=== PATIENT | female | born 1980 | race Caucasian/White ===

== ENCOUNTER → 2020-05-05 16:18 | Outpatient (BNV) | payer MEDICAID, SELFPAY | PROVIDERS: PCP Family Medicine; Visit Provider Internal Medicine | DX: D50.9 Iron deficiency anemia, unspecified (principal) | CPT/HCPCS: 99213; 99214 ==

== ENCOUNTER 2020-07-17 21:46 | Emergency (ER) | payer MEDICAID, SELFPAY ==
[2020-07-17 21:49] VITALS: BP 180/116; PULSE 100; RESP 18; TEMP 36.9; O2SAT 97; BMI 36.4
--- NOTE | 2020-07-17 22:53 | ED_ITS ---
HPI - Wound/Laceration General Chief Complaint: Wound/Laceration Stated Complaint: Lip laceration Time Seen by Provider: 07/17/20 22:50 Source: patient Mode of arrival: ambulatory History of Present Illness HPI narrative: This is a 39-year-old female who states that she fell and hit her upper lip without loss of consciousness sustaining a laceration to the left upper lip. She otherwise denies any pain. Related Data Allergies Allergy/AdvReac Type Severity Reaction Status Date / Time No Known Allergies Allergy Unknown N/A Verified 07/17/20 21:49 [No Known Allergies*] Review of Systems Review of Systems: Pertinent positives and negatives as stated in HPI 10 point review of systems otherwise negative [facility] Past Medical History Source: nursing notes reviewed Medical History Hypertension Iron deficiency Personal history of renal cancer Surgical History H/O tubal ligation History of appendectomy History of nephrectomy, left Hx of tonsillectomy Social History Social History Alcohol intake: current Alcohol intake frequency: holidays/special occasions only Smoking Status: Current every day smoker Tobacco Type: Cigarette Use of substances other than those prescribed or required for medical reasons: No Any prior treatment program specific to substance use: No Advance Directives: No Advance Directives Information Provided: No Physical Exam Vital Signs: Vital Signs: Last Vital Signs Temp 98.4 F 07/17/20 21:49 Pulse 100 07/17/20 21:49 Resp 18 07/17/20 21:49 BP 180/116 H 07/17/20 21:49 Pulse Ox 97 07/17/20 21:49 Body Mass Index 36.4 VITAL SIGNS: Reviewed. GENERAL: Well developed, well nourished, in no acute distress. HEAD: Normocephalic/atraumati, EYES: PERRLA, EOMI NOSE: Nares patent bilateral OROPHARYNX: no oral lesions noted, posterior pharynx clear, no chipped teeth, and 0.5 cm laceration to the mucosal side of the left upper lip that is hemostatic and no other noted lesions within the mouth. NECK: Supple, no adenopathy LUNGS: Normal breath sounds. No adventitious sounds or accessory muscle use. SpO2<> CARDIOVASCULAR: Regular rate and rhythm without noted murmurs ABDOMEN: Soft, non-tender, non-distended with bowel sounds. NEUROLOGIC: Alert and oriented x 4. Strength and sensation to light touch were grossly intact x 4. Course Course Course Narrative: This is a 39-year-old female with history and clinical presentation consistent with minor laceration to the mucosal surface of the left upper lip that does not require sutures. Patient is unsure of tetanus vaccine and patient will receive Tdap here in the emergency department and be discharged in stable condition. Discharge Plan Discharge Clinical Impression: Laceration of lip Qualifiers: Encounter type: initial encounter Qualified Code(s): S01.511A - Laceration without foreign body of lip, initial encounter Patient Disposition: Home, Self-Care Instructions: Laceration Without Closure (ED) Additional Instructions: - May use huvq-bkw-dzjducv Tylenol/ibuprofen for pain control. - may use saline rinses - you have received your Tdap vaccine Do not hesitate to return to the emergency department should you develop any acute worsening. Referrals: Serena Levine MD [Primary Care Provider] - 2 days (Re-evaluation of left upper lip laceration not requiring suture)
== END 2020-07-17 23:58 | disposition home or self-care (01) ==
PROVIDERS: Emergency Provider Student in an Organized Health Care Education/Training Program; PCP Family Medicine
DX: S01.511A Laceration without foreign body of lip, initial encounter (principal); S00.511A Abrasion of lip, initial encounter; W01.198A Fall on same level from slipping, tripping and stumbling with subsequent striking against other object, initial encounter; I10 Essential (primary) hypertension; F17.210 Nicotine dependence, cigarettes, uncomplicated; Y93.89 Activity, other specified; Y92.039 Unspecified place in apartment as the place of occurrence of the external cause; Y99.9 Unspecified external cause status; Z85.53 Personal history of malignant neoplasm of renal pelvis
CPT/HCPCS: 90471; 90715; 99284

== ENCOUNTER 2020-08-12 08:46 | Outpatient (REF) | payer MEDICAID, SELFPAY ==
--- NOTE | 2020-08-12 08:51 | EMG_ITS ---
Right median and ulnar motor and sensory studies were performed. Right radial sensory study was performed and paraspinal muscles were tested. IMPRESSION: [id number]-ct-[id number] right median neuropathy across carpal tunnel. MD SUSI Uriostegui/TOMEKA / [id number]
== END 2020-08-12 08:47 | disposition home or self-care (01) ==
LOC: HO.NEURO 08:46
PROVIDERS: Visit Provider Family Medicine
DX: M25.531 Pain in right wrist (principal); R20.0 Anesthesia of skin
CPT/HCPCS: 95860; 95886; 95909

== ENCOUNTER 2020-10-01 14:46 | Emergency (ER) | payer MEDICAID, SELFPAY ==
[2020-10-01 14:49] VITALS: BP 185/115; PULSE 88; RESP 18; TEMP 36.6; O2SAT 100; BMI 29.0
--- NOTE | 2020-10-01 16:36 | ED.GENADULT ---
HPI - General Adult General Chief complaint: Allergic Reaction <Sarath Harris - Last Filed: 10/01/20 16:45> Stated complaint: allergic reaction <Sarath Harris - Last Filed: 10/01/20 16:45> Time Seen by Provider: 10/01/20 16:36 <Sarath Harris - Last Filed: 10/01/20 16:45> Source: patient <Sarath Harris - Last Filed: 10/01/20 16:45> Limitations: no limitations <Sarath Harris - Last Filed: 10/01/20 16:45> History of Present Illness HPI narrative: Patient presents complaining of intermittent hives that happened over the past 24 hours. Patient denies any new medications or ingestions. Patient states she feels like when she is outside makes worse. Patient has no history of seasonal allergies. Patient states positive relief with frvz-dbg-vstfaph Benadryl. Patient denies shortness of breath fever chills or chest pain. No other complaints at this time. <Sarath Harris - Last Filed: 10/01/20 16:45> Related Data Home medications: Home Medications Medication Instructions Recorded Confirmed gabapentin 100 mg capsule 100 mg PO DAILY 10/12/20 lisinopril 2.5 mg tablet 2.5 mg PO DAILY 10/12/20 <Sarath Harris - Last Filed: 10/01/20 16:45> Allergies/adverse reactions: Allergies Allergy/AdvReac Type Severity Reaction Status Date / Time No Known Allergies Allergy Unknown N/A Verified 10/12/20 11:19 [No Known Allergies*] <Sarath Harris - Last Filed: 10/01/20 16:45> Review of Systems Constitutional: Constitutional: Denies body ache(s), Denies chills, Denies fever(s) and Denies headache(s) <Sarath aHrris - Last Filed: 10/01/20 16:45> Eyes: Eyes: Denies blurry vision and Denies itchy eyes <Sarath Harris - Last Filed: 10/01/20 16:45> ENT: Denies headache(s), Denies lip swelling, Denies nasal discharge, Denies sore throat and Denies tongue swelling <Sarath Harris - Last Filed: 10/01/20 16:45> Cardiovascular: Cardiovascular: Denies chest pain, Denies dyspnea and Denies dyspnea on exertion <Sarath Harris - Last Filed: 10/01/20 16:45> Respiratory: Respiratory: Denies cough, Denies dyspnea and Denies dyspnea on exertion <Sarath Harris - Last Filed: 10/01/20 16:45> Gastrointestinal: Gastrointestinal: Denies diarrhea, Denies nausea and Denies vomiting <Sarath Harris - Last Filed: 10/01/20 16:45> Musculoskeletal: Musculoskeletal: Reports no additional musculoskeletal complaints <Sarath Harris - Last Filed: 10/01/20 16:45> Neurologic: Denies headache(s) <Sarath Harris - Last Filed: 10/01/20 16:45> Hematologic/Lymphatic: Hematologic/Lymphatic: Denies easy bruising <Sarath Harris - Last Filed: 10/01/20 16:45> Allergic/Immunologic: Allergic/Immunologic: Denies GI upset with certain foods, Reports urticaria, Denies itchy eyes, Denies lip swelling and Denies tongue swelling <Sarath Harris - Last Filed: 10/01/20 16:45> [facility] Past Medical History Attestation statement: The following information was validated with the patient. <Sarath Harris - Last Filed: 10/01/20 16:45> Medical History: Medical History Hypertension Iron deficiency Personal history of renal cancer <Sarath Harris - Last Filed: 10/01/20 16:45> Surgical History: Surgical History H/O tubal ligation History of appendectomy History of nephrectomy, left Hx of tonsillectomy <Sarath Harris - Last Filed: 10/01/20 16:45> Social History Social History: Social History (Updated 10/12/20 @ 11:21 by Shelbie Isidro) Alcohol intake: never Current occupational status: employed Current occupation: rt handed . secrectary <Sarath Harris - Last Filed: 10/01/20 16:45> Physical Exam Vital Signs: Vital Signs: Last Vital Signs Temp 97.9 F 10/01/20 14:49 Pulse 88 10/01/20 14:49 Resp 18 10/01/20 14:49 BP 185/115 H 10/01/20 14:49 Pulse Ox 100 10/01/20 14:49 Body Mass Index 29.0 vital signs have been reviewed as normal and appeared to be correct. Blood pressure normal. Heart rate normal. Respiration rate normal. Temperature normal. Oxygen saturation normal. <Sarath Harris - Last Filed: 10/01/20 16:45> Vital Signs: Last Vital Signs Temp 97.9 F 10/01/20 14:49 Pulse 88 10/01/20 14:49 Resp 18 10/01/20 14:49 BP 185/115 H 10/01/20 14:49 Pulse Ox 100 10/01/20 14:49 Body Mass Index 29.0 <Efren Colon MD - Last Filed: 10/25/20 07:00> Appearance: Alert. Oriented X3. No acute distress. Head: Normal external exam. Normocephalic. Atraumatic. Eyes: PERRLA. EOMI. Conjunctiva and sclera normal. Eyelids normal. ENT: Pharynx normal. Uvula midline. Moist mucous membranes. Oral airway is pain no stridor Neck: Soft full range of motion CVS: Heart regular rate and rhythm no murmurs and rubs Respiratory: Breath sounds are clear to auscultation bilaterally. No accessory muscle use noted. Back: No CVA tenderness. Full range of motion noted. Skin: Skin warm and dry. Normal skin color. Normal skin turgor. Urticarial rash resolved since taking the Benadryl. Extremities: No lower extremity edema. Extremities exhibit normal range of motion. Extremities nontender. Neuro: Oriented X 3. No motor deficit. No sensory deficit. <Sarath Harris - Last Filed: 10/01/20 16:45> Course Course Course Narrative: Differential diagnosis: Idiopathic urticaria Seasonal allergies Contact dermatitis 4:40 p.m. symptoms have improved since patient taken [id number]-rgrjddk Benadryl will discharge patient home on Pred Juan A and continue to take Benadryl every 6-8 hours return if symptoms worsen <Sarath Harris - Last Filed: 10/01/20 16:45> I have reviewed the chart <Efren Colon MD - Last Filed: 10/25/20 07:00> Discharge Plan Discharge Clinical Impression: Urticaria <Sarath Harris - Last Filed: 10/01/20 16:45> Patient Disposition: Home, Self-Care <Sarath Harris - Last Filed: 10/01/20 16:45> Instructions: Urticaria (ED) <Sarath Harris - Last Filed: 10/01/20 16:45> Additional Instructions: Continue taking aoxb-luu-slkoslw Benadryl every 6-8 hours Prednisone as directed Return if symptoms worsen <Sarath Harris - Last Filed: 10/01/20 16:45> Interventions: ED Discharge Assessment Last Done: 10/01/20 17:14 <Sarath Harris - Last Filed: 10/01/20 16:45> Discharge Date/Time: 10/01/20 17:16 <Sarath Harris - Last Filed: 10/01/20 16:45>
== END 2020-10-01 17:16 | disposition home or self-care (01) ==
PROVIDERS: Emergency Provider Emergency Medicine; PCP Family Medicine
DX: L50.0 Allergic urticaria (principal); F17.210 Nicotine dependence, cigarettes, uncomplicated; Z71.6 Tobacco abuse counseling; Z79.899 Other long term (current) drug therapy
CPT/HCPCS: 99283; 99284

== ENCOUNTER → 2020-10-12 11:01 | Outpatient (BNVA) | payer MEDICAID, SELFPAY | PROVIDERS: PCP Family Medicine; Visit Provider Orthopaedic Surgery | DX: G56.01 Carpal tunnel syndrome, right upper limb (principal); G56.02 Carpal tunnel syndrome, left upper limb | CPT/HCPCS: 99202 ==

== ENCOUNTER 2020-11-04 13:18 | Day surgery (SDC) | payer MEDICAID, SELFPAY ==
[2020-11-04 13:25] VITALS: BMI 37.3
[2020-11-04 13:30] VITALS: BP 165/109; PULSE 95; RESP 15; TEMP 36.6; O2SAT 97
[2020-11-04] MEDS: Lidocaine HCl 1%/Epi 1:100,000 20 ML VIAL 9 ML INFILTRATI (13:50)
--- NOTE | 2020-11-04 15:18 | MHC.SHP ---
Pre-Procedural Eval Section B Chief Complaint: carpal tunnel Allergies: Allergies Allergy/AdvReac Type Severity Reaction Status Date / Time No Known Allergies Allergy Unknown N/A Verified 11/04/20 13:24 [No Known Allergies*] Plan I have reviewed the history and physical and performed a pertinent physical examination on my patient. No changes have occurred unless specified.
--- NOTE | 2020-11-04 15:18 | W.PM.OPN ---
Operative Note Operative Note Date of Service: 11/04/20 Narrative: Preop diagnosis: 1. Right Carpal tunnel syndrome Postop diagnosis: same Procedure: 1. Right Carpal tunnel release Surgeon: Mecca Card MD Anesthesia: local block using 1% lidocaine with epinephrine Findings: Thickened transverse carpal ligament. EBL: Less than 5 mL Specimens: None Complications: None Disposition: Brought to recovery room in stable condition Plan: Follow-up for 7-10 days for wound check and suture removal Indications: The patient is 40 years old, with right carpal tunnel syndrome that has been unresponsive to nonoperative management. The risks and benefits of operative treatment including but not limited to risk of damage to blood vessels, nerves, tendons, infection, persistent pain, persistent symptoms, or possible need for additional surgery were discussed with the patient and the patient wishes to proceed with surgery. Procedure: Once consent was obtained a local block was performed using a combination of 1% lidocaine with epinephrine. The patient was then brought back to the operating suite and placed on the operative table in supine position. A tourniquet was applied to the proximal aspect of the right upper extremity and the limb was prepped and draped in a standard surgical fashion. Once assured that we had a good block, a 1.5 cm longitudinal incision was made centered over the carpal tunnel. The incision was made through the skin to the subcutaneous tissues using a #15 blade. Dissection was made down to the level of the transverse carpal ligament with care being taken to protect the palmar cutaneous nerve. Once the transverse carpal ligament was clearly visualized, a longitudinal incision was made in the transverse carpal ligament 1st using a #15 blade, then using tenotomy scissors under direct visualization. Care was taken to look for and protect the motor branch of the median nerve when seen in this area. Once satisfied with our carpal tunnel release the wound was copiously irrigated with normal saline and hemostasis was obtained with a brief period of local pressure. The skin edges were reapproximated with some 5.0 nylon suture material and a sterile dressing was applied. The patient appears to have tolerated the procedure well and with no complications. All digits were well vascularized at the conclusion of the case.
[2020-11-04 15:55] VITALS: BP 138/88; PULSE 79; RESP 16; TEMP 37; O2SAT 98
== END 2020-11-04 16:02 | disposition home or self-care (01) ==
PROVIDERS: PCP Family Medicine; Visit Provider Orthopaedic Surgery
PROC: (CPT 64721; principal; 2020-11-04 13:30)
DX: G56.01 Carpal tunnel syndrome, right upper limb (principal); I10 Essential (primary) hypertension; Z79.899 Other long term (current) drug therapy
CPT/HCPCS: 64721

== ENCOUNTER → 2020-11-15 12:22 | Outpatient (BNVA) | payer MEDICAID, SELFPAY | PROVIDERS: Visit Provider Orthopaedic Surgery | DX: G56.03 Carpal tunnel syndrome, bilateral upper limbs (principal) | CPT/HCPCS: 99212 ==

== ENCOUNTER 2022-07-13 14:22 | Outpatient (REF) | payer MEDICAID, SELFPAY ==
--- NOTE | ~2022-07-13 | XR_ITS ---
EXAMINATION: XR foot RT min 3V, XR foot LT min 3V CLINICAL INFORMATION: Reason for Exam PAIN IN BOTH HEELS COMPARISON: None. TECHNIQUE: Three views of the bilateral feet XR/XR foot RT min 3V FINDINGS/IMPRESSION: * No acute fracture or dislocation. * Joint spaces are maintained without significant degenerative change. * No soft tissue abnormality.
--- NOTE | ~2022-07-13 | XR_ITS ---
EXAMINATION: XR WRIST, LEFT CLINICAL INFORMATION: Chronic left wrist pain COMPARISON: None TECHNIQUE: PA, lateral, and oblique views of the left wrist. FINDINGS: The bones and soft tissues are normal. No fracture. Alignment is anatomic with normal joint spaces. No erosions or abnormal soft tissue calcifications. XR/XR wrist LT min 3V IMPRESSION: Normal left wrist.
--- NOTE | ~2022-07-13 | XR_ITS ---
EXAMINATION: XR foot RT min 3V, XR foot LT min 3V CLINICAL INFORMATION: Reason for Exam PAIN IN BOTH HEELS COMPARISON: None. TECHNIQUE: Three views of the bilateral feet XR/XR foot LT min 3V FINDINGS/IMPRESSION: * No acute fracture or dislocation. * Joint spaces are maintained without significant degenerative change. * No soft tissue abnormality.
== END 2022-07-13 14:23 | disposition home or self-care (01) ==
LOC: HO.XRAY 14:22
PROVIDERS: PCP Family Medicine; Visit Provider Family Medicine
DX: M79.671 Pain in right foot (principal); M79.672 Pain in left foot; M25.532 Pain in left wrist
CPT/HCPCS: 73110; 73630

== ENCOUNTER → 2022-08-11 13:21 | Outpatient (BNVA) | payer MEDICAID, SELFPAY | PROVIDERS: PCP Family Medicine; Visit Provider Physician Assistant | DX: M77.01 Medial epicondylitis, right elbow (principal); M77.11 Lateral epicondylitis, right elbow; M77.02 Medial epicondylitis, left elbow; M77.12 Lateral epicondylitis, left elbow | CPT/HCPCS: 99202 ==

== ENCOUNTER 2022-08-18 08:24 | Outpatient (REF) | payer MEDICAID, SELFPAY | END 2022-08-18 08:25 | disposition home or self-care (01) | LOC: HO.MDS 08:24 | PROVIDERS: Visit Provider Internal Medicine | DX: D50.9 Iron deficiency anemia, unspecified (principal) | CPT/HCPCS: 96365; J1756 ==

== ENCOUNTER 2022-08-25 08:10 | Outpatient (REF) | payer MEDICAID, SELFPAY | END 2022-08-25 08:11 | disposition home or self-care (01) | LOC: HO.MDS 08:10 | PROVIDERS: Visit Provider Internal Medicine | DX: D50.9 Iron deficiency anemia, unspecified (principal) | CPT/HCPCS: 96365; J1756 ==

== ENCOUNTER 2022-09-01 08:16 | Outpatient (REF) | payer MEDICAID, SELFPAY | END 2022-09-01 08:17 | disposition home or self-care (01) | LOC: HO.MDS 08:16 | PROVIDERS: Visit Provider Internal Medicine | DX: D50.9 Iron deficiency anemia, unspecified (principal) | CPT/HCPCS: 96365; J1756 ==

== ENCOUNTER 2022-09-08 08:21 | Outpatient (REF) | payer MEDICAID, SELFPAY | END 2022-09-08 08:22 | disposition home or self-care (01) | LOC: HO.MDS 08:21 | PROVIDERS: Visit Provider Internal Medicine | DX: D50.9 Iron deficiency anemia, unspecified (principal) | CPT/HCPCS: 96365; J1756 ==

== ENCOUNTER 2022-09-15 08:33 | Outpatient (REF) | payer MEDICAID, SELFPAY | END 2022-09-15 08:34 | disposition home or self-care (01) | LOC: HO.MDS 08:33 | PROVIDERS: Visit Provider Internal Medicine | DX: D50.9 Iron deficiency anemia, unspecified (principal) | CPT/HCPCS: 96365; J1756 ==

== ENCOUNTER → 2022-09-22 12:36 | Outpatient (BNVA) | payer MEDICAID, SELFPAY | PROVIDERS: PCP Family Medicine; Visit Provider Physician Assistant | DX: M77.01 Medial epicondylitis, right elbow (principal); M77.02 Medial epicondylitis, left elbow; M77.11 Lateral epicondylitis, right elbow; M77.12 Lateral epicondylitis, left elbow; G56.02 Carpal tunnel syndrome, left upper limb | CPT/HCPCS: 99212 ==

== ENCOUNTER 2022-10-12 11:33 | Outpatient (REF) | payer MEDICAID, SELFPAY ==
--- NOTE | 2022-10-12 08:00 | EMG_ITS ---
Left median and ulnar motor and sensory studies were performed. Left radial sensory study was performed and paraspinal muscles were tested with a needle. IMPRESSION: 1. Mild left median neuropathy across carpal tunnel. 2. Mild left ulnar neuropathy across cubital tunnel. MD SUSI Uriostegui/TOMEKA / [id number]
== END 2022-10-12 11:34 | disposition home or self-care (01) ==
LOC: HO.NEURO 11:33
PROVIDERS: PCP Family Medicine; Visit Provider Physician Assistant
DX: M77.01 Medial epicondylitis, right elbow (principal); M77.02 Medial epicondylitis, left elbow; M77.11 Lateral epicondylitis, right elbow; M77.12 Lateral epicondylitis, left elbow; G56.03 Carpal tunnel syndrome, bilateral upper limbs
CPT/HCPCS: 95886; 95909

== ENCOUNTER → 2022-10-19 10:42 | Outpatient (BNVA) | payer MEDICAID, SELFPAY | PROVIDERS: PCP Family Medicine; Visit Provider Urology | DX: C64.9 Malignant neoplasm of unspecified kidney, except renal pelvis (principal) | CPT/HCPCS: 99202 ==

== ENCOUNTER → 2022-11-22 07:45 | Outpatient (BNV) | payer MEDICAID, SELFPAY | PROVIDERS: PCP Family Medicine; Visit Provider Radiology Diagnostic Radiology | DX: Z12.31 Encounter for screening mammogram for malignant neoplasm of breast (principal) | CPT/HCPCS: 77063; 77067 ==

== ENCOUNTER 2022-11-22 07:46 | Outpatient (REF) | payer MEDICAID, SELFPAY ==
--- NOTE | ~2022-11-22 | MM_ITS ---
EXAMINATION: MM SCREENING DIGITAL BREAST TOMOSYNTHESIS, BILATERAL CLINICAL INFORMATION: Screening. Asymptomatic. The lifetime risk of breast cancer based on the Tyrer-Cuzick Model is 6.4%. COMPARISON: Mammography: This study is compared with prior exams dating back to TECHNIQUE: Digital breast tomosynthesis is performed in both the craniocaudal and mediolateral oblique views along with computer-aided detection (CAD). Synthesized 2D images are generated from the tomosynthesis. FINDINGS: The breasts are heterogeneously dense, which may obscure small masses (ACR BI-RADS breast composition Category c). There are no significant masses, abnormal calcifications, or other abnormalities. MM/MM tomosynthesis screening BI IMPRESSION: No mammographic evidence of malignancy. ASSESSMENT: BI-RADS BI-RADS 1 - Negative RECOMMENDATION: Routine annual mammography screening. 1 year F/U This examination should not preclude the clinical evaluation of a suspicious palpable abnormality. This patient's information was entered into a reminder system with a target due date for their next mammogram.
== END 2022-11-22 07:47 | disposition home or self-care (01) ==
LOC: HO.MAMMO 07:46
PROVIDERS: PCP Family Medicine; Visit Provider Family Medicine
DX: Z12.31 Encounter for screening mammogram for malignant neoplasm of breast (principal)
CPT/HCPCS: 77063; 77067

== ENCOUNTER 2022-12-13 09:38 | Outpatient (AMB) | payer MEDICAID, SELFPAY ==
--- NOTE | 2022-12-13 09:44 | MHC.OFFVIS ---
Intake Vital Signs 12/13/22 09:45 Height 4 ft 11 in Weight 188 lb BMI 38.0 Intake Visit Reasons: ov- Bi-lateral CTS EMG review Intake Note: Yolande 42 yr old right hand dominant female presents today for her EMG review of her left hand. Patient last seen with Soledad Pérez who sent patient for a new EMG study. Patient is S/P Right hand CTR 11/04/[address] Card. Patient would like to discuss surgery. Allergies No Known Allergies [No Known Allergies*] Allergy (Unknown, Verified 12/13/22 09:45) N/A HPI ov- Bi-lateral CTS EMG review HPI Details Yolande is a 42 year old right hand dominant woman who presents for a NCS review of her left hand numbness. She has a Hx of a right carpal tunnel release, DOS: 11/04/20, with me. 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 She complains of numbness in all digits of her left hand. Symptoms intermittent, but daily, worse at night. In regards to her right hand, she says her sensation is good. She reports a Hx of a nephrectomy several years ago due to renal cancer, but she has no current kidney problems. [facility] Medical History Hypertension Iron deficiency Personal history of renal cancer Surgical History H/O tubal ligation History of appendectomy History of nephrectomy, left Hx of tonsillectomy Social History Household Members: Spouse and Children Housing: House Alcohol intake: never Patient Tobacco Use Status: Current someday Tobacco user Current occupational status: employed Current occupation: rt handed . secrectary Review of Systems Const All systems reviewed & are unremarkable except as noted in HPI and below Physical Exam Vital Signs: BMI result Body Mass Index 38.0 Const General: cooperative, healthy appearing and no acute distress Orientation/consciousness: patient oriented x3 HEENT Head: Yes normocephalic and Yes atraumatic Eyes EOM: EOMs intact bilaterally Resp Effort & Inspection: normal respiratory effort and able to speak in complete sentences Cardio Jugular venous distension: no JVD Skin General skin exam: turgor normal Rashes: no rashes Neuro General: patient oriented x3 Extrem Other: Evaluation of Left Upper Extremity: The patient is alert, oriented, and in no acute distress Neuro: Median, Ulnar, Radial nerves motor and sensory intact and sensation is normal to the tips of all digits today in clinic No thenar or intrinsic wasting Good APB muscle belly firing and good finger cross Vascular: Cap refill brisk ROM: She can make a fist and extend all her digits Nerve Conduction Study: IMPRESSION:? 1. Mild left median neuropathy across carpal tunnel. 2. Mild left ulnar neuropathy across cubital tunnel. ? M Rose Calderón MD 10/12/2022 Psych Appearance: grossly normal Affect: normal affect Attitude: cooperative Assessment & Plan Assessment & Plan (1) Carpal tunnel syndrome of left wrist: Code(s): G56.02 - Carpal tunnel syndrome, left upper limb (2) Cubital tunnel syndrome on left: Code(s): G56.22 - Lesion of ulnar nerve, left upper limb (3) History of carpal tunnel surgery of right wrist: Code(s): Z98.890 - Other specified postprocedural states Plan Assessment & Plan: 1. Left Carpal tunnel syndrome, mild Symptoms intermittent, but daily, worse at night 2. Left Cubital tunnel syndrome, mild Symptoms intermittent, but daily, worse at night I educated her about these conditions I discussed operative and non-operative treatment options The patient would like to proceed with surgery The risks and benefits of operative treatment were discussed with the patient and the patient wishes to proceed with surgery. These risks include, but are not limited to risk of damage to blood vessels, nerves, tendons, infection, recurrence, incomplete relief of preoperative symptoms, persistent pain, possible need for further surgery and the risks associated with regional blocks and anesthesia. The plan is to take the patient to the operating room sometime in the next few weeks for the following procedures: 1. Left carpal tunnel release, under general 2. Left cubital tunnel release vs transposition, under general All of the preoperative paperwork including the consent was filled out today. All the patient's questions were answered. The patient understands that they will be contacted by our puff ironer soon to schedule this procedure She denies Diabetes, blood thinners, asthma, heart, lung, kidney issues She reports a Hx of a nephrectomy several years ago, but denies any kidney issues 3. History of right carpal tunnel release, DOS: 11/04/20 With good resolution of her symptoms Scribed for Mecca Card MD by Demetri Harley, medical reimbursement manager, on 12/13/22 at 10:25 AM, EST. Coding Level of Care Code Est Pt Level 4 (60470) Diagnoses Carpal tunnel syndrome of left wrist G56.02 Cubital tunnel syndrome on left G56.22 History of carpal tunnel surgery of right wrist Z98.890
[2022-12-13 09:45] VITALS: BMI 38.0
== END 2022-12-13 10:36 | disposition home or self-care (01) ==
PROVIDERS: Visit Provider Orthopaedic Surgery
DX: G56.02 Carpal tunnel syndrome, left upper limb (principal); G56.22 Lesion of ulnar nerve, left upper limb
CPT/HCPCS: 99214

== ENCOUNTER → 2022-12-13 09:38 | Outpatient (BNVA) | payer MEDICAID, SELFPAY | PROVIDERS: Visit Provider Orthopaedic Surgery | DX: G56.02 Carpal tunnel syndrome, left upper limb (principal); G56.22 Lesion of ulnar nerve, left upper limb; Z98.890 Other specified postprocedural states | CPT/HCPCS: 99212 ==

== ENCOUNTER 2024-10-02 08:44 | Emergency (ER) | payer SELFPAY ==
--- NOTE | ~2024-10-02 | CT_ITS ---
EXAMINATION: CT ABDOMEN AND PELVIS WITH CONTRAST CLINICAL INFORMATION: Severe upper abdominal pain, nausea and vomiting. COMPARISON: 11/24/2019 TECHNIQUE: Multidetector volumetric images were obtained from the superior aspect of the liver through the pubic symphysis following administration 85 mL of Omnipaque 350 intravenous contrast. Sagittal and coronal reformatted images were obtained on the technologist's workstation. Oral contrast: No This CT examination was performed using dose optimization techniques as appropriate, variously including the following: *Automated exposure control *Adjustment of mA and/or kV according to patient size (this includes techniques or standardized protocols for targeted exams where dose is matched to indication/reason for exam; i.e. extremities or head) *Use of iterative reconstruction technique FINDINGS: LUNG BASES: Heart size is normal. There is a moderate to large-sized paraesophageal hiatus hernia present. There are no effusions. Lung bases are essentially clear. LIVER, GALLBLADDER, AND BILIARY TREE: The liver is normal in size, shape, and attenuation. No focal hepatic lesion or biliary ductal dilatation is present. The gallbladder is unremarkable with no evidence of radiopaque gallstones, gallbladder wall thickening, or obvious pericholecystic inflammatory changes. PANCREAS: Unremarkable. SPLEEN: Unremarkable. ADRENAL GLANDS: Unremarkable. KIDNEYS AND URETERS: There has been left nephrectomy. There is moderate to severe hydronephrosis of the right kidney, to the level of the UPJ. No obstructing abnormality is identified. No mass, or cyst is present. There is a 2 mm nonobstructing calculus in the midpole. The mid and distal right ureter are nondilated. There is a suggestion of a possible 3 mm calculus in the mid to distal right ureter (series 3, image 54; series 5, image 39), although this is not definitive and could be a phlebolith. BLADDER: Somewhat decompressed although grossly normal in appearance. GASTROINTESTINAL TRACT: There is no acute bowel pathology. There are no CT features of appendicitis. The colon is normal in course and caliber without inflammatory changes. The small bowel is normal in course and caliber without inflammatory changes. ABDOMINAL WALL: No significant hernia is appreciated. LYMPH NODES: Normal. VASCULAR: Unremarkable. PELVIC VISCERA: There are uterine fibroids present, the largest in the left ventral aspect measuring 2.5 cm in diameter. There are no adnexal or ovarian abnormalities. OSSEOUS STRUCTURES: No suspicious lytic or blastic bone lesions. CT/CT abdomen pelvis w IV con IMPRESSION: 1. Moderate to severe right renal hydronephrosis due to what appears to be a 3 mm calculus in the mid to distal right ureter, just below the iliac crossover. See discussion above. 2. There is a 2 mm nonobstructing calculus in the midpole right kidney. 3. There has been a left nephrectomy. 4. There is a large paraesophageal hiatus hernia encompassing the entire fundus and part of the body of the stomach. 5. Additional ancillary findings as discussed. Electronically signed by: Ryan Chris MD 10/02/2024 02:13 PM EDT
[2024-10-02 08:53] VITALS: BP 162/123; PULSE 91; RESP 18; TEMP 36.8; O2SAT 98; BMI 27.7
[2024-10-02 09:11] LABS: MANUAL DIFF FLAG NO
[2024-10-02 09:12] LABS: Basophils Percent Auto 0.2 % (0-2); Eosinophils Percent Auto 0.2 % (0-4); Hematocrit 36.2 % (37.0-47.0); Hemoglobin 12.2 g/dl (12.0-16.0); Imm Gran Abs Auto 0.05 X10*3/uL (0.00-0.03); Imm Gran Pct Auto 0.4 % (0.0-0.4); Lymphocytes Absolute Auto 0.9 X10*3/uL (1.2-4.9); Lymphocytes Percent Auto 7.4 % (20-40); Mean Corpuscular HGB Conc 33.7 g/dl (31.0-35.0); Mean Corpuscular Hemoglobin 28.3 pg (27.0-33.0); Mean Platelet Volume 9.9 fL (9.4-12.3); Monocytes Absolute Auto 0.4 X10*3/uL (0.1-1.2); Monocytes Percent Auto 2.9 % (2-11); Neutrophils Absolute Auto 10.9 x10*3/uL (2.0-8.3); Neutrophils Percent Auto 88.9 % (45-73); Platelet Count 364 X10*3/uL (160-400); Red Blood Count 4.31 X10*6/uL (4.20-5.50); Red Cell Distribution Width 15.9 % (11.0-16.0); White Blood Count 12.3 X10*3/uL (4.8-10.8)
[2024-10-02 09:27] LABS: Alanine Aminotransferase 10 U/L (0-31); Albumin Level 4.1 g/dL (3.5-5.0); Alkaline Phosphatase 62 U/L (39-117); Anion Gap 10 (12-20); Aspartate Amino Transferase 20 U/L (5-31); Bilirubin Direct 0.1 mg/dL (0.0-0.5); Bilirubin Total 0.4 mg/dL (0.0-1.0); Blood Urea Nitrogen 10 mg/dL (9-16); Calcium 9.4 mg/dL (8.4-10.2); Carbon Dioxide 25 mmol/L (22-29); Chloride 108 mmol/L (96-108); Estimated Glomerular Filt Rate > 60; Glucose Random 115 mg/dL (60-115); Magnesium 1.8 mg/dL (1.6-2.6); Potassium 3.7 mmol/L (3.3-5.1); Sodium 139 mmol/L (135-145); Total Protein 7.1 g/dL (6.5-8.0)
--- NOTE | 2024-10-02 11:34 | ED.ABDPAIN ---
HPI - Abdominal Pain General Chief Complaint: Abdominal Pain Stated Complaint: abd pain Time Seen by Provider: 10/02/24 11:32 Source: patient Mode of arrival: ambulatory Limitations: no limitations History of Present Illness ED Provider: Pao Perry PA-C HPI narrative: 44-year-old female with a history of renal cell carcinoma status post nephrectomy, history of appendectomy, HTN, iron deficiency anemia who presents to the ER for evaluation of severe epigastric abdominal pain for the last 4 days. She reports she has daily severe pain accompanied with nausea and vomiting each morning. She reports the pain subsides later in the day, but can get reaggravated when she eats certain foods. She states she has struggled with diarrhea and constipation along with this intermittent pain for quite a while. It has never been constant and severe for 4 days however. She denies any associated urinary symptoms including urgency, frequency, hematuria. She has not had any fever or chills. She had a normal bowel movement this morning. She states she intentionally lost about 50 lb in the last 4 months with dietary modifications. MD elicited complaint: abdominal pain Onset (ago): day(s) (4) Pain Consistency: constant Location: epigastric Severity: severe Quality: stabbing Radiation: none Migration to: no migration Exacerbating factors: eating Relieving factors: nothing Context: history of similar episodes Associated symptoms: nausea, vomiting, diarrhea and constipation Related Data Home Medications ?Medication ?Instructions ?Recorded ?Confirmed amlodipine 2.5 mg tablet 2.5 mg PO DAILY 08/11/22 06/06/23 ascorbic acid (vitamin C) 500 mg 500 mg PO BID 08/11/22 06/06/23 tablet (Vitamin C) cholecalciferol (vitamin D3) 25 25 mcg PO DAILY 08/11/22 06/06/23 mcg (1,000 unit) tablet ferrous sulfate 325 mg (65 mg 325 mg PO BID 08/11/22 06/06/23 iron) tablet,delayed release metoprolol succinate 100 mg 100 mg PO QAM 08/11/22 06/06/23 tablet,extended release 24 hr omeprazole 20 mg capsule,delayed 20 mg PO DAILY 10/19/22 06/06/23 release pyridoxine (vitamin B6) 50 mg 50 mg PO QPM 10/19/22 06/06/23 tablet (Vitamin B-6) Previous Rx's ?Medication ?Instructions ?Recorded ondansetron 4 mg disintegrating 4 mg PO Q8H PRN nausea and 10/02/24 tablet vomiting #7 tabs oxycodone 5 mg tablet 5 mg PO Q6H PRN severe pain (scale 10/02/24 score 7-10) #10 tabs tamsulosin 0.4 mg capsule (Flomax) 0.4 mg PO DAILY #14 caps 10/02/24 Allergies Allergy/AdvReac Type Severity Reaction Status Date / Time No Known Allergies Allergy Unknown N/A Verified 10/02/24 08:55 [No Known Allergies*] Review of Systems Review of Systems Yes all other systems are reviewed and are negative [facility] Past Medical History Medical History Hypertension Iron deficiency Personal history of renal cancer Surgical History H/O tubal ligation History of appendectomy History of nephrectomy, left Hx of tonsillectomy Social History Social History Household Members: Spouse and Children Housing: House Alcohol intake: never Patient Tobacco Use Status: Current someday Tobacco user Current occupational status: employed Current occupation: rt handed . secrectary Physical Exam ED Vital Signs: Vital Signs - 24 hr 10/02/24 08:53 10/02/24 12:10 10/02/24 14:19 Temperature 98.3 F Pulse Rate 91 100 60 Respiratory Rate 18 20 16 Blood Pressure 162/123 H 161/88 H 133/89 Pulse Oximetry 98 98 99 Oxygen Delivery Method Room Air Room Air Room Air 10/02/24 15:22 Temperature 98.3 F Pulse Rate 60 Respiratory Rate 16 Blood Pressure 133/89 Pulse Oximetry 99 Oxygen Delivery Method Room Air BMI result Body Mass Index 27.7 Appearance: Alert. Oriented X3. Tearful and appears in pain Head: normocephalic, atraumatic. Eyes: Pupils equal, round and reactive to light. ENT: Pharynx normal. No tonsillar swelling or exudate. Neck: Normal inspection. Neck supple. CVS: Normal heart rate and rhythm. Pulses normal. Respiratory: No respiratory distress. Breath sounds normal. Abdomen: Soft with epigastric tenderness, normal active. +BS x4 midline surgical scar present, well healed. no palpable hernia Skin: Skin warm and dry. Normal skin color. Normal skin turgor. No rashes. Extremities: No lower extremity edema. No joint swelling. Neuro/psych: Oriented X 3. No motor deficit. No sensory deficit. CN II-XII intact. Normal speech and cognition. Medical Decision Making Medical Decision Making [facility] Narrative: 44-year-old female with history of left nephrectomy in the past due to renal cell carcinoma, history of appendectomy who presents to the ER for evaluation of epigastric abdominal pain, along with nausea and vomiting that occur every morning for the last 4 days. She is tearful on arrival and in clear distress. IV was established she was given IV Zofran and morphine. Lab workup showing mild leukocytosis of 12.3. Urinalysis negative for blood in infection. Lipase and LFTs are unremarkable. Given her degree of discomfort CT scan was done for further evaluation patient was found to have a 3 mm ureteral stone with mild to severe hydronephrosis on the right side. She is also found to have a paraesophageal hiatal hernia, which may be causing some of her symptoms as well. Patient's urinalysis is negative for blood infection. She is feeling much better after morphine. She follows with Dr. Bosch from Urology. At this time she is stable for discharge home with management of ureteral stone, outpatient follow-up with Urology, GI follow-up for her hiatal hernia. She is stable for DC, advised with some dietary modifications and will follow-up with her providers. Patient agreeable with plan and all questions were answered Differential Diagnosis Differential Diagnoses: The differential diagnosis associated with the presentation includes Pancreatitis, cholecystitis, gastroenteritis, gastritis, PUD, H pylori, esophageal hernia, dissection Admission/Observation Consideration of admission/observation: Escalation of care including admission/observation considered Lab Data [facility] Lab Attestation statement: I reviewed the patient's lab results. Mild leukocytosis, mild anemia, normal UA 10/02/24 09:02 10/02/24 09:02 Labs: Lab Results 10/02/24 10/02/24 Range/Units 09:02 14:22 WBC 12.3 H (4.8-10.8) X10*3/uL RBC 4.31 (4.20-5.50) X10*6/uL Hgb 12.2 (12.0-16.0) g/dl Hct 36.2 L (37.0-47.0) % MCV 84.0 (80.0-98.0) fL MCH 28.3 (27.0-33.0) pg MCHC 33.7 (31.0-35.0) g/dl RDW 15.9 (11.0-16.0) % Plt Count 364 (160-400) X10*3/uL MPV 9.9 (9.4-12.3) fL Immature Gran % (Auto) 0.4 (0.0-0.4) % Neut % (Auto) 88.9 H (45-73) % Lymph % (Auto) 7.4 L (20-40) % Shannon % (Auto) 2.9 (2-11) % Eos % (Auto) 0.2 (0-4) % Baso % (Auto) 0.2 (0-2) % Lymph # (Auto) 0.9 L (1.2-4.9) X10*3/uL Shannon # (Auto) 0.4 (0.1-1.2) X10*3/uL Eos # (Auto) 0.0 (0.0-0.4) X10*3/uL Baso # (Auto) 0.0 (0.0-0.2) X10*3/uL Abs Immat Gran (auto) 0.05 H (0.00-0.03) X10*3/uL Absolute Neuts (auto) 10.9 H (2.0-8.3) x10*3/uL Absolute Nucleated RBC 0.000 (0.0-0.012) X10*3/uL Nucleated RBC % (auto) 0.0 (0.0-0.2) /100WBC Sodium 139 (135-145) mmol/L Potassium 3.7 (3.3-5.1) mmol/L Chloride 108 (96-108) mmol/L Carbon Dioxide 25 (22-29) mmol/L Anion Gap 10 L (12-20) BUN 10 (9-16) mg/dL Creatinine 0.72 (0.5-1.4) mg/dL Estim Creat Clear Calc 80.0 Estimated GFR > 60 Random Glucose 115 (60-115) mg/dL Calcium 9.4 (8.4-10.2) mg/dL Magnesium 1.8 (1.6-2.6) mg/dL Total Bilirubin 0.4 (0.0-1.0) mg/dL Direct Bilirubin 0.1 (0.0-0.5) mg/dL AST 20 (5-31) U/L ALT 10 (0-31) U/L Alkaline Phosphatase 62 (39-117) U/L Total Protein 7.1 (6.5-8.0) g/dL Albumin 4.1 (3.5-5.0) g/dL Lipase 34 (8-78) U/L Beta HCG, Quant < 2 mIU/mL Urine Color Yellow Urine Appearance Clear Urine pH 6.0 (5.0-9.0) Ur Specific Beggs 1.010 (1.005-1.025) Urine Protein Negative (Neg-Trace) mg/dL Urine Glucose (UA) Negative (Negative) mg/dL Urine Ketones 15 (Negative) mg/dL Urine Blood Negative (Negative) Urine Nitrite Negative (Negative) Ur Leukocyte Esterase Negative (Negative) Independent Interpretation I performed an independent interpretation of an: CT Scan Interpretation: s/p left nephrectomy, hydro on the right side Radiology Impression Discussion of test interpretation with radiology: I have reviewed the radiologist's reading. Radiologist Impression: CT/CT abdomen pelvis w IV con IMPRESSION: 1. Moderate to severe right renal hydronephrosis due to what appears to be a 3 mm calculus in the mid to distal right ureter, just below the iliac crossover. See discussion above. 2. There is a 2 mm nonobstructing calculus in the midpole right kidney. 3. There has been a left nephrectomy. 4. There is a large paraesophageal hiatus hernia encompassing the entire fundus and part of the body of the stomach. 5. Additional ancillary findings as discussed. External Record Review External record reviewed: Office record, Outpatient record, Prior outpatient labs and Prior outpatient radiology Prescription Management I considered prescription management with: Pain Medication, Antibiotic and Other (steroids for kidney stone, avoided 2/2 solo kidney) Chronic Conditions Patient?s care impacted by: Other (renal cancer, hx kidney stones) Medications Administered Discontinued Medications Generic Name Dose Route Start Last Admin Trade Name Freq PRN Reason Stop Dose Admin Sodium Chloride 1,000 mls @ 999 mls/hr 10/02/24 12:30 10/02/24 12:34 Ns IV 10/02/24 13:30 999 mls/hr .Q1H1M LUH Administration Iohexol 100 ml 10/02/24 13:58 10/02/24 13:58 Iohexol 350 Mg/Ml 100 Ml Infus..Btl IV 10/02/24 13:59 85 ml ONCE ONE Administration Morphine Sulfate 4 mg 10/02/24 12:15 10/02/24 12:34 Morphine Sulfate 4 Mg/Ml Cartridge IVPUSH 10/02/24 12:16 4 mg ONCE ONE Administration Protocol Ondansetron HCl 4 mg 10/02/24 12:15 10/02/24 12:35 Ondansetron Hcl 4 Mg/2 Ml Vial IVPUSH 10/02/24 12:16 4 mg ONCE ONE Administration Critical Care Time Critical Care Time Critical Care Time: No Discharge Plan Discharge Clinical Impression: Hydronephrosis with ureteral calculus, Hiatal hernia Patient Disposition: Home, Self-Care Instructions: Hiatal Hernia (ED), Ureteral Stones (ED) Additional Instructions: You have a 3 mm kidney stone in your right ureter, you will likely pass this on your own. Drink plenty of fluids. Take the prescribed Flomax to help pass the stone. Follow-up with your urologist Dr. Bosch. Take the prescribed oxycodone as needed for severe pain only. Do not drive after taking this medication. You were also found to have a paraesophageal hernia - recommend follow-up with Gastroenterology. Call for an appointment. If you develop new or worsening symptoms call 911 or come back to the ER for further evaluation. CT/CT abdomen pelvis w IV con IMPRESSION: 1. Moderate to severe right renal hydronephrosis due to what appears to be a 3 mm calculus in the mid to distal right ureter, just below the iliac crossover. See discussion above. 2. There is a 2 mm nonobstructing calculus in the midpole right kidney. 3. There has been a left nephrectomy. 4. There is a large paraesophageal hiatus hernia encompassing the entire fundus and part of the body of the stomach. 5. Additional ancillary findings as discussed. Prescriptions: New tamsulosin [Flomax] 0.4 mg capsule 0.4 mg PO DAILY Qty: 14 0RF oxycodone 5 mg tablet 5 mg PO Q6H PRN (Reason: severe pain (scale score 7-10)) Qty: 10 0RF Rx Instructions: Partial Fill upon patient request. ondansetron 4 mg tablet,disintegrating 4 mg PO Q8H PRN (Reason: nausea and vomiting) Qty: 7 0RF No Action metoprolol succinate 100 mg tablet extended release 24 hr 100 mg PO QAM ferrous sulfate 325 mg (65 mg iron) tablet,delayed release (DR/EC) 325 mg PO BID cholecalciferol (vitamin D3) 25 mcg (1,000 unit) tablet 25 mcg PO DAILY ascorbic acid (vitamin C) [Vitamin C] 500 mg tablet 500 mg PO BID amlodipine 2.5 mg tablet 2.5 mg PO DAILY pyridoxine (vitamin B6) [Vitamin B-6] 50 mg tablet 50 mg PO QPM omeprazole 20 mg capsule,delayed release(DR/EC) 20 mg PO DAILY Referrals: [facility] Gastroenterology Services [Provider Group] [facility] Urology Services [Provider Group] Stand Alone Forms: Work/School Release Interventions: ED Discharge Assessment Last Done: 10/02/24 15:22 Discharge Date/Time: 10/02/24 15:23 Print Language: Belarusian
[2024-10-02 12:10] VITALS: BP 161/88; PULSE 100; RESP 20; O2SAT 98
[2024-10-02 12:24] LABS: Lipase 34 U/L (8-78)
[2024-10-02 12:28] LABS: HCG Quantitative < 2 mIU/mL
[2024-10-02] MEDS: 0.9 % Sodium Chloride 1,000 ML 999 ML IV (12:34)
[2024-10-02] MEDS: Morphine Sulfate 4 MG/ML CARTRIDGE IVPUSH (12:34)
[2024-10-02] MEDS: ondansetron HCL 4 MG/2 ML VIAL IVPUSH (12:35)
--- OUTSIDE RECORDS SUMMARY | 2024-10-02 12:56 | XMS_ITS | Encounter Summary ---
Author Organization [employer] Address [address] [place] [address] Care Team Providers Care Range Technician Name Role Phone Serena Levine MD Primary Care Provider [phone] Nader Womack PharmD Unavailable [phone] Encounter Details Date Type Department Care Team (Late st Contact Info) Description 04/09/2023 Abstract [facility] [address] [place] [address] Misa Farris Social History Tobacco Use Types Packs/Day Years Used Date Smoking Tobacco: Some Days Cigarettes Passive Smoke Exposure: Never Smokeless Tobacco: Never Comments:Patient only smokes while drinking alcohol Alcohol Use Standard Drinks/Week Comments Yes 0 (1 standard drink = 0.6 oz pur e alcohol) Housing Stability Answer Date Recorded What is your housing situation today? I have [employer] [place] 03/26/[address] you li ve. Do you have problems with any of the following? None of the above 03/26/2023 Food Insecurity Answer Date Recorded Within the past 12 months, y ou worried that your food would run out before you got money to buy more: Never True 03/26/2023 Within the past 12 months,th e food you bought just didn't last and you didn't have enough money to get more: Never True 10/2022 Transportation Answer Date Recorded In the past 12 months, has l ack of transportation kept you from medical appts, meetings, work or from getting things needed for daily living? No 03/26/2023 Utilities Answer Date Recorded In the past 12 months, has t he electric, gas, oil or water company threatened to shut off services in your home? No 03/26/2023 Depression Answer Date Recorded Patient Health Questionnaire-2 Score 2 07/03/2022 Comments Unknown Sex and Gender Information Value Date Recorded Sex Assigned at Female 03/20/2022 10:14 AM EDT Legal Sex Female 10:14 AM EDT Gender Identity Female 03/20/2022 10:14 AM EDT Sexual Orientation Straight 03/20/2022 10 :14 AM EDT documented as of this encounter Plan of Treatment Not on file documented as of this encounter Goals Goal Patient Goal Type Associated Problems Recent Progress Patient-Stated? Author Blood Pressure < 140/90 Blood Pressure 130/100(2022 9:15 AM EDT) No Nader Womack, PharmD documented as of this encounter Visit Diagnoses Not on filedocumented in this encounter Care Teams Range Technician Relationship Specialty Start Date End Date Serena Levine MD [address] [place] [address] PCP - General Family Medicine 05/21/18 Nader Womack, PharmD [address] [place] [address] Pharmacist Internal Medicine 06/26/22 documented as of this encounter
--- OUTSIDE RECORDS SUMMARY | 2024-10-02 12:56 | XMS_ITS | Clinical Summary ---
Author Organization [employer] Address [address] [facility] [address] [place] [address] Care Team Providers Care Personnel Research Psychologist Name Role Phone Serena Levine MD Primary Care Provider [phone] Nader Womack PharmD Unavailable [phone] Allergies No known active allergies Medications Diclofenac Sodium 1 % gel APPLY 2 GRAMS TO AFFECTED AREA TWICE A DAY 2 Active pyridoxine (Vitamin B-6) 50 MG tablet TAKE ONE TABLET BY MOUTH EVERY EVENING 2 Active cholecalciferol (Vitamin D-3) 25 MCG tablet TAKE ONE TABLET DAILY AT NOON 90 tablet 3 Active omeprazole (PriLOSEC) [address] capsule TAKE ONE CAPSULE DAILY BEFORE A MEAL 90 capsule 3 3 Active FeroSul 325 (65 Fe) MG tablet TAKE ONE TABLET TWICE DAILY AT NOON AND IN THE EVENING 180 tablet 1 3 Active Ascorbic Acid (vitamin C) 500 MG tablet TAKE ONE TABLET TWICE DAILY AT NOON AND IN THE EVENING 180 tablet 1 3 Active metoprolol succinate XL (Toprol-XL) 100 MG 24 hr tabletIndications :Essential hypertension TAKE ONE TABLET EVERY MORNING 90 tablet 1 3 Active amLODIPine (Norvasc) 2.5 MG tabletIndications :Primary hypertension TAKE ONE TABLET EVERY MORNING 90 tablet 4 Active Active Problems Problem Noted Date Diagnosed Date Cubital tunnel syndrome, bilateral 01/30/2023 Medial epicondylitis of both elbows 10/13/2022 Assessment & Plan (10/13/2022 5:32 AM EDT): -Seen by Orthopedist on 08/11/22; pt did not receive steroid injection and was referred to OT -Seen again by Orthopedist on 09/22/22, reported improvement of pain after starting water aerobics and receiving iron infusion; continue current treatment plan -Relative contraindication to NSAIDs (Hx Renal cell carcinoma s/p nephrectomy) Plantar fasciitis, bilateral 10/13/2022 Assessment & Plan (10/13/2022 5:33 AM EDT): - referred to personnel assistant, but pain improved with weight loss - continue wearing comfortable shoes - continue enjoying water aerobics Cardiac risk counseling 10/13/2022 Assessment & Plan (10/13/2022 5:39 AM EDT): -Lipid profile: 07/13/22 TC 171; TG 88; HDL 56; LDL 97 -ASCVD risk < 7.5% -optimize risk factor management (HTN and smoking) Iron deficiency anemia 10/12/2022 Assessment & Plan (10/13/2022 5:33 AM EDT): - Following with [facility] L[facility] Department for iron deficiency anemia, last seen 08/02/22 -Labs on 07/13/22 showed: WBC 13.4, Hgb 8.7; Hematocrit 29.2; Platelet 705; Ferritin 6; TIBC 502; Saturation 3%; Iron 13 -Pt received Iron Infusion, Venofer, total of 5 doses -pt is feeling better overall Pain of both elbows 07/09/2022 Assessment & Plan (10/12/2022 9:35 AM EDT): -Medial epicondylitis -Seen by Orthopedist on 08/11/22; pt did not receive steroid injection but was referred to OT -Seen again by Orthopedist on 09/22/22, reported improvement of pain; still no steroid injection -Relative contraindication to NSAIDs (Hx Renal cell carcinoma s/p nephrectomy) Assessment & Plan (07/09/2022 5:31 AM EST): -Medial epicondylitis -Not improving with conservative management -Relative contraindication to NSAIDs (Hx Renal cell carcinoma s/p nephrectomy) -Refer to orthopedist for steroid injection Heel pain, bilateral 07/09/2022 Assessment & Plan (10/12/2022 9:48 AM EDT): -Likely plantar fasciitis -Improved after weight loss and Iron infusion Assessment & Plan (07/09/2022 5:33 AM EST): -Likely plantar fasciitis -Not improving with conservative management -Refer to personnel assistant Primary hypertension 07/03/2022 Assessment & Plan (10/13/2022 5:30 AM EDT): -Goal BP < 140/90 per JNC-8 guideline, < 130/80 per ACC/AHA guideline -Adherence improved -Co-managed with our pharmacist through [facility] clinic. Attending appt, last appt on 07/23/22. -Continue working on lifestyle modifications -Continue checking BP at home -Continue metoprolol succinate 100 mg daily -Continue Amlodipine 2.5 mg daily Treatment Hx: -History of poor adherence in the past, restarted with metoprolol only, and recently restarted amlodipine. -F/u in 3 mo or sooner if any problem arises Assessment & Plan (07/09/2022 5:26 AM EST): -Goal BP < 140/90 per JNC-8 guideline, < 130/80 per ACC/AHA guideline -Adherence is improving, still suboptimal -Continue working on lifestyle modifications -Continue checking BP at home -Continue metoprolol succinate 100 mg daily -Consider restarting amlodipine -Keep appt with Nader for [facility] Treatment Hx: -Discontinued amlodipine 2.5 mg due to non-adherence -F/u in 3 mo or sooner if any problem arises Bilateral carpal tunnel syndrome 07/03/2022 Overview (07/03/2022): -EMG/NCt on 08/12/20 right CTS -s/p right carpal tunnel release on 11/04/[address] Card, [facility] orthopedist Assessment & Plan (10/13/2022 5:27 AM EDT): -EMG/NCT on 08/12/20 right CTS confirmed -s/p right carpal tunnel release on 11/04/[address] Card, [facility] orthopedist -scheduled for NCT/EMG by her orthopedist for evaluation of left CTS Tobacco use disorder 07/03/2022 Assessment & Plan (10/13/2022 5:34 AM EDT): -She states she only smokes when she drinks -Continue working on smoking cessation and drinking judiciously / responsibly Assessment & Plan (07/03/2022 1:31 PM EST): -She states she only smokes when she drinks -Continue working on smoking cessation Dermatographic urticaria 06/26/2022 Allergic rhinitis 04/27/2016 Clear cell carcinoma of kidney 11/25/2015 Assessment & Plan (10/12/2022 9:51 AM EDT): -Urologist: Dr. Bosch, seen in September 2020 per pt report. -s/p left radical nephrectomy by Dr. Osorio in August 2014. -No sign of recurrence at this time. -Surveillance US q6m per Dr. Bosch. -Avoid nephrotoxic drugs. -Prescribed vitamin B6 since Dr. Bosch recommended it. -Upcoming appointment with Dr. Bosch 10/19/22 Assessment & Plan (07/03/2022 1:43 PM EST): -Urologist: Dr. Bosch, seen in September 2020 per pt report. -s/p left radical nephrectomy by Dr. Osorio in August 2014. -No sign of recurrence at this time. -Surveillance US q6m per Dr. Bosch. -Avoid nephrotoxic drugs. -Prescribed vitamin B6 since Dr. Bosch recommended it. -Will refer to Urology since it has been 3+years since being evaluated. Migraine 01/14/2015 Assessment & Plan (07/09/2022 5:39 AM EST): -continue metoprolol succinate 100 mg nightly for both HTN and STODDARD Treatment Hx: -amitriptyline side effect with higher dose, but was effective. Restarted at lower dose in Dec 2019 -Pt disliked topiramate side effect, and it was discontinued -Relative contraindication to NSAIDs due to s/p L nephrectomy status Mixed anxiety and depressive disorder 01/14/2015 Assessment & Plan (07/03/2022 1:21 PM EST): -Pt states she currently foes not have sxs -Last depressive sxs was in December 2019 -Pt takes fluoxetine when she is depressed -Taking Amitriptyline when she has headaches History of nephrectomy 01/14/2015 Kidney stone 06/09/2014 Immunizations Immunization Administration Dates Next Due Influenza, IIV3, injectable 03/31/2014 Tdap 07/17/2020,04/07/2013 Varicella 2018 Family History Medical History Relation Name Comments Diabetes type II Father Hypertension Father chronic kidney diseaes Father opioid use disorder Father Relation Name Status Comments Father Social History Tobacco Use Types Packs/Day Years Used Date Smoking Tobacco: Some Days Cigarettes Passive Smoke Exposure: Never Smokeless Tobacco: Never Tobacco Cessation:Ready to Q uit: Not Asked; Counseling Given: Not Answered Comments:Patient only smokes while drinking alcohol Alcohol Use Standard Drinks/Week Comments Yes 0 (1 standard drink = 0.6 oz pur e alcohol) Housing Stability Answer Date Recorded What is your housing situation today? I have pierre polanco 03/26/[address] you [...] Orientation Straight 03/20/2022 10 :14 AM EDT Last Filed Vital Signs Vital Sign Reading Time Taken Comments Blood Pressure 130/100 10/12/2022 9:15 AM EDT Pulse 76 10/12/2022 9:15 AM EDT Temperature 36.9 ??C (98.4 ??F) 10/12/2022 9:15 AM ED T Respiratory Rate 16 10/12/2022 9:15 AM EDT Oxygen Saturation - - Inhaled Oxygen Concentration - - Weight 85.5 kg (188 lb 6.4 oz) 10/12/2022 9:15 A M EDT Height 156.3 cm (5' 1.52 ) 12/28/2021 12:08 AM E DT Body Mass Index 35 12/28/2021 12:08 AM EDT Plan of Treatment Health Maintenance Due Date Last Done Comments Alcohol/Substance Use Screening 1992 Family Planning (PISQ) 10/01/1995 Hepatitis B Vaccines (1 of 3 - 19+ 3-dose series) 10/01/1999 Pneumococcal Vaccine: Pediatrics (0 to 5 Years) and At-Risk Patients (6 to 49) Years) (1 of 2 - PCV) 10/01/1999 Pap Smear 2001 Cervical Cancer Screening 2010 HPV/Cotest 2010 Depression Screening 07/03/2023 07/03/2022, 07/03/19 23 SDOH Screening 07/03/2023 07/03/2022 Tobacco Screening 10/13/2023 10/12/2022 COVID-19 Vaccine ( season) 2024 01/16/2022, 12/19/2021 Influenza Vaccine (#1) 2024 03/31/2014 Mammogram 11/22/2024 11/22/2022 Lipid Panel 07/13/2027 07/13/2022, 1010/2021, 03/07/2021, Additional history exists DTaP/Tdap/Td Vaccines (3 - Td or Tdap) 07/17/2030 07/17/2020, 04/07/2013 Zoster Vaccines (1 of 2) 2030 RSV Patients and Patients Aged 60 years or older (1 - 1-dose 75+ series) 10/01/2055 HIV Screening Completed 03/15/2022, 02/18, 07/06/2020 Hepatitis C Screening Completed 03/15/2022 , 03/07/2021, 07/06/2020 HIB Vaccines Aged Out No longer eligi ble based on patient's age to complete this topic HPV Vaccines Aged Out No longer eligi ble based on patient's age to complete this topic Hepatitis A Vaccines Aged Out No long er eligible based on patient's age to complete this topic IPV Vaccines Aged Out No longer eligi ble based on patient's age to complete this topic Meningococcal B Vaccine Aged Out No l onger eligible based on patient's age to complete this topic Meningococcal Vaccine Aged Out No bruce ata eligible based on patient's age to complete this topic RSV under 20 months Aged Out No longe r eligible based on patient's age to complete this topic Rotavirus Vaccines Aged Out No longer eligible based on patient's age to complete this topic Goals Goal Patient Goal Type Associated Problems Recent Progress Patient-Stated? Author Blood Pressure < 140/90 Blood Pressure 130/100(2022 9:15 AM EDT) No Nader Womack, Mikayla Procedures Procedure Name Priority Date/Time Associated Diagnosis Comments BI MAMMOGRAM SCREENING TOMOSYNTHESIS BILATERAL Routine 11/22/2022 8:12 AM EDT LIPID PANEL WITH REFLEX TO DIRECT LDL Routine 07/13/2022 2:58 PM EST Primary hypertension ZZZ HISTORICAL HEPATITIS C AB W/REFL TO HCV RNA, QN, PCR Routine 03/15/2022 9:38 AM EDT HIV 1/2 ANTIGEN/ANTIBODY, FOURTH GENERATION W/RFL Routine 03/15/2022 9:38 AM EDT from Last 3 Months or Most Recently Relevant to Health Maintenance Results * BI Mammogram Screening Tomosynthesis Bilateral (11/22/2022 8:12 AM EDT) Anatomical Region Laterality Modality Breast Bilateral Mammography 11/22/2022 8:12 AM EDT Narrative 12/11/2022 8:42 AM EDT ? [facility] ? [address] ?[place] [address] ? Mammography Report ? Signed with Addenda ? Patient: Yolande Odell ?MR#: [id number] ?? [id number] ? : 1980 ?Acct:[id number] ? Age/Sex: 42 / F ?ADM Date: 11/22/ ? Loc: HO.MAMMO ? Attending Dr: Serena Levine MD ? Ordering Physician: Serena Levine MD ?Results: ? Date of Service: 11/22/22 ?Follow Up: ? Procedure(s): MM tomosynthesis screening BI ?? Accession Number(s): [id number] ? cc: Serena Levine MD ?ADDENDUM ?? ADDENDUM: ?? This study has no prior mammograms for comparison. ? OVERALL ASSESSMENT: ?? BI-RADS 1 - Negative ? RECOMMENDATION: ?? 1 year F/U ? Addendum Dictated By: ?Rosalva Tang MD ? Addendum Signed By: ? <Electronically signed by Rosalva Tang MD in OV> ? 07/24/23 0848 ?? Addendum Cosigned By: ? DD/ /744 ? TD/TT: / ? EXAMINATION: ?? MM SCREENING DIGITAL BREAST TOMOSYNTHESIS, BILATERAL ? CLINICAL INFORMATION: ? Screening. Asymptomatic. ? The lifetime risk of breast cancer based on the Tyrer-Cuzick Model is ?? 6.4%. ? COMPARISON: ?? Mammography: This study is compared with prior exams dating back to ? TECHNIQUE: ?? Digital breast tomosynthesis is performed in both the craniocaudal and ?? mediolateral oblique views along with computer-aided detection (CAD). ?? Synthesized 2D images are generated from the tomosynthesis. ? FINDINGS: ?? The breasts are heterogeneously dense, which may obscure small masses ?? (ACR BI-RADS breast composition Category c). ? There are no significant masses, abnormal calcifications, or other ?? abnormalities. ? MM/MM tomosynthesis screening BI ?? IMPRESSION: ?? No mammographic evidence of malignancy. ? ASSESSMENT: ? BI-RADS BI-RADS 1 - Negative ? RECOMMENDATION: ?? Routine annual mammography screening. ? 1 year F/U ? This examination should not preclude the clinical evaluation of a ?? suspicious palpable abnormality. ? This patient's information was entered into a reminder system with a ?? target due date for their next mammogram. ? Dictated By: ?Rosalva Tang MD ? Signed By: ?<Electronically signed by Rosalva Tang MD in OV> ? 12/11/22 0839 ? DD/ 0812 ? TD/TT: ? Eating Disorder Specialist: ? Procedure Note Donenricoter, Image - 12/11/2022 [facility] [address] [place], [place] [address] Mammography Report Signed with Flip Patient: Yolande OdellMR#: [id number] : 1980Acct:[id number] Age/Sex: 42 / FADM Date: 11/22/22 Loc: [facility] Attending Dr: Serena Levine MD Ordering Physician: Serena Levineults: Date of Service: 11/22/22Follow Up: Procedure(s): MM tomosynthesis screening BI Accession Number(s): [id number] cc: Serena Levine MD ADDENDUM ADDENDUM: This study has no prior mammograms for comparison. OVERALL ASSESSMENT: BI-RADS 1 - Negative RECOMMENDATION: 1 year F/U Addendum Dictated By: Rosalva Tang MD Addendum Signed By: <Electronically signed by Rosalva Tang MD in OV> 12/11/22 0848 Addendum Cosigned By: DD/ /10/744 TD/TT: / EXAMINATION: MM SCREENING DIGITAL BREAST TOMOSYNTHESIS, BILATERAL CLINICAL INFORMATION: Screening. Asymptomatic. The lifetime risk of breast cancer based on the Tyrer-Cuzick Model is 6.4%. COMPARISON: Mammography: This study is compared with prior exams dating back to TECHNIQUE: Digital breast tomosynthesis is performed in both the craniocaudal and mediolateral oblique views along with computer-aided detection (CAD). Synthesized 2D images are generated from the tomosynthesis. FINDINGS: The breasts are heterogeneously dense, which may obscure small masses (ACR BI-RADS breast composition Category c). There are no significant masses, abnormal calcifications, or other abnormalities. MM/MM tomosynthesis screening BI IMPRESSION: No mammographic evidence of malignancy. ASSESSMENT: BI-RADS BI-RADS 1 - Negative RECOMMENDATION: Routine annual mammography screening. 1 year F/U This examination should not preclude the clinical evaluation of a suspicious palpable abnormality. This patient's information was entered into a reminder system with a target due date for their next mammogram. Dictated By: Rosalva Tang MD Signed By: <Electronically signed by Rosalva Tang MD in OV> 12/11/22 0839 DD/ 1 TD/TT: Eating Disorder Specialist: us Serena Levine MD IM BI PROCEDURES Edited Result - Final * Lipid Panel with Reflex to Direct LDL (07/13/2022 2:58 PM EST) Cholesterol, Total 171 <200 mg/dL [facility] HDL Cholesterol 56 > OR = 50 mg/dL [facility] Triglycerides 88 <150 mg/dL [facility] LDL Cholesterol 97 mg/dL (calc) [facility] Comment: Reference range: <100 Desirable range <100 mg/dL for primary prevention; ?? <70 mg/dL for patients with CHD or diabetic patients with > or = 2 CHD risk factors. LDL-C is now calculated using the Abhay calculation, which is a validated novel method providing better accuracy than the Friedewald equation in the estimation of LDL-C. Haja DELGADO et al. GIULIANA. 2013;310(19): 7637-3563 (http://education.XGIMI/faq/IDR951) Chol/HDLC Ratio 3.1 <5.0 (calc) [facility] Non-HDL Cholesterol 115 <130 mg/dL (calc) [facility] Comment: For patients with diabetes plus 1 major ASCVD risk factor, treating to a non-HDL-C goal of <100 mg/dL (LDL-C of <70 mg/dL) is considered a therapeutic option. 07/13/2022 2:58 PM EST 07/13/2022 2:58 PM EST Narrative [facility] - 07/14/2022 4:08 PM EST FASTING:NO FASTING: NO us Serena Levine MD LAB BLOOD ORDERABLES Final Resul t [facility] [address] [facility], [place] [address] [facility] [address] [facility], ([address]) [place] [address] * HEPATITIS C AB W/REFL TO HCV RNA, QN, PCR (03/15/2022 9:38 AM EDT) HEPATITIS C ANTIBODY NON-REACTI VE NON-REACT ANA CONVERTED LEGACY LABS INDEX 0.20 <1.00 CONVERTED LEGACY LABS Comment: ?? HCV antibody was non-reactive. There is no laboratory ?? evidence of HCV infection. ?? In most cases, no further action is required. However, if recent HCV exposure is suspected, a test for HCV RNA (test code 02290) is suggested. ?? For additional information please refer to http://education.[employer]/faq/QLQ90v7 (This link is being provided for informational/ educational purposes only.) ?? 03/15/2022 9:38 AM EDT Serena Levine MD HISTORICAL/NON ORDERABLE LABS Fi nal Result CONVERTED LEGACY LABS * HIV 1/2 ANTIGEN/ANTIBODY,FOURTH GENERATION W/RFL (03/15/2022 9:38 AM EDT) HIV-1/2 ANTIGEN AND ANTIBODIES, 4TH GENERATION W/ REFLEX NON-REACT ANA NON-REACT ANA CONVERTED LEGACY LABS Comment: HIV-1 antigen and HIV-1/HIV-2 antibodies were not detected. There is no laboratory evidence of HIV infection. ?? PLEASE NOTE: This information has been disclosed to you from records whose confidentiality may be protected by state law. ??If your state requires such protection, then the state law prohibits you from making any further disclosure of the information without the specific written consent of the person to whom it pertains, or as otherwise permitted by law. A general authorization for the release of medical or other information is NOT sufficient for this purpose. ? For additional information please refer to http://education.[employer]/faq/CJP413 (This link is being provided for informational/ educational purposes only.) ? The performance of this assay has not been clinically validated in patients less than 2 years old. ?? 03/15/2022 9:38 AM EDT Serena Levine MD LAB BLOOD ORDERABLES Final Resul t CONVERTED LEGACY LABS from Last 3 Months or Most Recently Relevant to Health Maintenance Insurance [facility] STAND[facility] Care Teams Personnel Research Psychologist Relationship Specialty Start Date End Date Serena Levine MD [address] [place] [id number] PCP - General Family Medicine 05/21/18 Nader Womack, KimD [address] [place] [phone] Pharmacist Internal Medicine 06/26/22
--- OUTSIDE RECORDS SUMMARY | 2024-10-02 12:56 | XMS_ITS | Encounter Summary ---
Author Organization [employer] Address [address] [facility] [address] [place] [address] Care Team Providers Care Percussion Instructor Name Role Phone Serena Levine MD Primary Care Provider [phone] Nader Womack PharmD Unavailable [phone] Reason for Visit * Reason Comments Med Refill Encounter Details Date Type Department Care Team (Late st Contact Info) Description 04/27/2023 Refill [facility] [address] [place], [place] [phone] Luna Brooks MD [address] [place], [place] [phone] Essential hypertension Social History Tobacco Use Types Packs/Day Years [...] documented as of this encounter Visit Diagnoses Diagnosis Essential hypertension Unspecified essential hypertension documented in this encounter Care Teams Percussion Instructor Relationship Specialty Start Date End Date Serena Levine MD [address] [place] [address] PCP - General Family Medicine 05/21/18 Nader Womack, PharmD [address] [place] [address] Pharmacist Internal Medicine 06/26/22 documented as of this encounter
[2024-10-02] MEDS: iohexoL 350 MG/ML 100 ML INFUS..BTL IV (13:58)
[2024-10-02 14:19] VITALS: BP 133/89; PULSE 60; RESP 16; O2SAT 99
[2024-10-02 14:28] LABS: Appearance Urine Clear; Color Urine Yellow; Glucose Urine UA Negative (Negative); Leukocyte Esterase Urine Negative (Negative); Nitrite Urine Negative (Negative); Urine Blood Negative (Negative); Urine Ketones 15 mg/dL (Negative); Urine Protein Negative (Neg-Trace)
[2024-10-02 15:22] VITALS: BP 133/89; PULSE 60; RESP 16; TEMP 36.8; O2SAT 99
== END 2024-10-02 15:23 | disposition home or self-care (01) ==
PROVIDERS: Physician Assistant; Emergency Provider Emergency Medicine
DX: N13.1 Hydronephrosis with ureteral stricture, not elsewhere classified (principal); K44.9 Diaphragmatic hernia without obstruction or gangrene; R10.13 Epigastric pain; I10 Essential (primary) hypertension; D50.9 Iron deficiency anemia, unspecified
CPT/HCPCS: 36415; 74177; 80053; 81003; 82248; 83690; 83735; 84702; 85025; 96374; 96375; 99283; 99284; J2270; J2405; Q9967

== ENCOUNTER → 2024-10-02 12:15 | Outpatient (BNV) | payer SELFPAY | PROVIDERS: Emergency Provider Emergency Medicine; Visit Provider Radiology Diagnostic Radiology | DX: N13.2 Hydronephrosis with renal and ureteral calculous obstruction (principal) | CPT/HCPCS: 74177 ==

== ENCOUNTER 2024-10-14 10:33 | Outpatient (AMB) | payer OTHER, SELFPAY ==
[2024-10-14 11:09] VITALS: BP 126/80; PULSE 76; TEMP 36.8; O2SAT 98
--- NOTE | 2024-10-14 11:09 | AM.OFFWIN_ITS ---
Intake Vital Signs 10/14/24 11:09 Weight 133 lb BP 126/80 Blood Pressure Location Lt brachial Position Sitting Pulse 76 Pulse Source Pulse Oximeter Temp 98.2 F Temp Source Oral Pulse Oximetry (%) 98 Oxygen Delivery Method Room Air Intake Visit Reasons: NURSE SANE-stomach pain, vomiting, diarrheas Intake Note: Patient here for stomach pain, vomiting and diarrhea that has been present for 2 weeks. Patient Tobacco Use Status: Current someday Tobacco user Allergies No Known Allergies [No Known Allergies*] Allergy (Unknown, Verified 10/14/24 11:21) N/A Do you need a note to return to daycare/school/sports/work: Yes HPI HPI Comments History of Present Illness Details 44 y/o Female patient who presents to [facility] walk in clinic with c/o Abdominal pain, vomiting and diarrhea that has been present for 2 weeks. Reports having daily severe pain accompanied with nausea and vomiting each morning. She reports the pain subsides later in the day, but can get re- aggravated when she eats certain foods. She states she has struggled with diarrhea and constipation along with this intermittent pain for quite a while. She was on Omeprazole in the past which worked well - she stopped taking it because she felt better. She was seen at [facility] 10/02 and evaluated/treated abdominal pain - CT Scan showed: There is a large paraesophageal hiatus hernia encompassing the entire fundus and part of the body of the stomach. She was told to F/U with GI but unfortunately she does not have PCP currently - Insurance requires Referral. [facility] Medical History (Updated 10/14/24 @ 12:08 by Belinda Pelaez NP) Paraesophageal hernia with gastroesophageal reflux Abdominal pain, chronic, epigastric Personal history of renal cancer Hypertension Iron deficiency Surgical History (Updated 06/06/23 @ 08:58 by Lisette Lance MD) Hx of tonsillectomy History of appendectomy H/O tubal ligation History of nephrectomy, left Social History Household Members: Spouse and Children Housing: House Alcohol intake: never Patient Tobacco Use Status: Current someday Tobacco user Current occupational status: employed Current occupation: rt handed . secrectary Review of Systems Const All systems reviewed & are unremarkable except as noted in HPI and below Physical Exam Vital Signs: Last Vital Signs Temp 98.2 F 10/14/24 11:09 Pulse 76 10/14/24 11:09 BP 126/80 10/14/24 11:09 Pulse Ox 98 10/14/24 11:09 Oxygen Delivery Method Room Air 10/14/24 11:09 Const General: comfortable and no acute distress Nutritional Appearance: well nourished Orientation/consciousness: patient oriented x3 Resp Effort & Inspection: normal respiratory effort Cardio Heart sounds: S1 normal heart sound present and S2 normal heart sound present GI Inspection: Yes normal to inspection Palpation (GI): Soft to palpation, not firm, Tenderness to palpation present (GI) in the epigastrum, no guarding, not rigid and No hepatosplenomegaly present Auscultation: Hypoactive bowel sounds present Rectal Exam - Female: deferred Neuro General: patient oriented x3, gait normal and moves all extremities Psych Speech and movement: Normal speech and movement present Assessment & Plan Assessment & Plan (1) Abdominal pain, chronic, epigastric: Code(s): R10.13 - Epigastric pain; G89.29 - Other chronic pain Plan: Ordered Omeprazole BID - this worked for her in the past. Ordered Famotidine for Bedtime. Refilled Zofran - this has been working well. (2) Paraesophageal hernia with gastroesophageal reflux: Code(s): K44.9 - Diaphragmatic hernia without obstruction or gangrene; K21.9 - Gastro- esophageal reflux disease without esophagitis Plan: Will need to f/u with GI after established with New PCP. Medications: New omeprazole 20 mg PO BID 30 days 60 caps 1RF G89.29 - Other chronic pain, R10.13 - Epigastric pain famotidine 20 mg PO BEDTIME 30 tabs 1RF G89.29 - Other chronic pain, R10.13 - Epigastric pain Changed From ondansetron 4 mg PO Q8H PRN 7 tabs 0RF nausea and vomiting G89.29 - Other chronic pain, R10.13 - Epigastric pain To ondansetron 4 mg PO Q6-8H PRN 30 tabs 0RF nausea and vomiting G89.29 - Other chronic pain, R10.13 - Epigastric pain Coding Level of Care Code New Pt Level 4 (28031) Diagnoses Abdominal pain, chronic, epigastric R10.13; G89.29 Paraesophageal hernia with gastroesophageal reflux K44.9; K21.9 Time Spent (min) 20
--- OUTSIDE RECORDS SUMMARY | 2024-10-14 11:17 | XMS_ITS | Clinical Summary ---
Author Organization [employer] Address [address] [facility] [address] [place] [address] Care Team Providers Care Venetian Blind Installer Name Role Phone Serena Levine MD Primary Care Provider [phone] Nader Womack PharmD Unavailable [phone] Allergies No known active allergies Medications Diclofenac [...] (10/13/2022 5:33 AM EDT): - referred to food and beverage associate, but pain improved with weight loss - continue wearing comfortable shoes - continue enjoying water aerobics Cardiac risk counseling 10/13/2022 Assessment & Plan (10/13/2022 5:39 AM EDT): -Lipid profile: 07/13/22 TC 171; TG 88; HDL 56; LDL 97 -ASCVD risk < 7.5% -optimize risk factor management (HTN and smoking) Iron deficiency anemia 10/12/2022 Assessment & Plan (10/13/2022 5:33 AM EDT): - Following with Apartment Property Manager for iron deficiency anemia, last seen 08/02/22 [...] -Not improving with conservative management -Refer to food and beverage associate Primary hypertension 07/03/2022 Assessment & Plan (10/13/2022 [...] tunnel release on 11/04/[address] Card, [facility] orthopedist Assessment & Plan (10/13/2022 5:27 AM EDT): -EMG/NCT on 08/12/20 right CTS confirmed -s/p right carpal tunnel release on 11/04/[address] Card, [facility] orthopedist -scheduled for NCT/EMG by her orthopedist [...] History of nephrectomy 01/14/2015 Kidney stone 06/09/2014 Encounters Date Type Department Care Team Description 10/14/2024 Travel 10/07/2024 Telephone [facility] [address] [place] [address] Jo Campbell RN Appointment Request 10/06/2024 Travel from Last 3 Months Immunizations Immunization Administration Dates Next Due Influenza, [...] 12/28/2021 12:08 AM EDT Plan of Treatment Upcoming Encounters Date Type Department Care Team (Late st Contact Info) Description 10/28/2024 10:00 AM EDT Office Visit [facility] [address] [place] [address] Serena Levine MD [address] [place] [address] Health Maintenance Due Date Last Done Comments Disability Screening 1980 Alcohol/Substance Use Screening 1992 Family Planning (PISQ) 10/01/1995 Hepatitis B Vaccines (1 of 3 - 19+ 3-dose series) 10/01/1999 Pneumococcal Vaccine: Pediatrics (0 to 5 Years) and At-Risk Patients (6 to 49) Years) (1 of 2 - PCV) 10/01/1999 Pap Smear 2001 Cervical Cancer Screening 2010 HPV/Cotest 2010 Depression Screening 07/03/2023 07/03/2022, 07/03/19 SDOH Screening 07/03/2023 07/03/2022 Tobacco Screening 10/13/2023 10/12/2022 COVID-19 Vaccine ( - season) 2024 01/16/2022, 12/19/2021 Influenza Vaccine (#1) 2024 03/31/2014 Mammogram 11/22/2024 11/22/2022 Lipid Panel 07/13/2027 07/13/2022, 02/19, 03/07/2021, Additional history exists DTaP/Tdap/Td Vaccines (3 [...] 9:15 AM EDT) No Nader Womack, PharmD Procedures Procedure Name Priority Date/Time Associated Diagnosis [...] EDT Narrative 12/11/2022 8:42 AM EDT ? [facility] [place] ? [address] ?[place] [address] ? Mammography Report ? Signed with Addenda ? Patient: Yolande Odell ?MR#: [id number] ?? [id number] ? : 1980 ?Acct:[id number] ? Age/Sex: 42 / F ?ADM Date: 07/05/23 ? Loc: HO.MAMMO ? Attending Dr: Serena Levine MD ? Ordering Physician: Serena Levine MD ?Results: ? Date of Service: // ?Follow Up: ? Procedure(s): MM tomosynthesis screening BI ?? Accession Number(s): [id number] ? cc: Serena Levine MD ?ADDENDUM ?? ADDENDUM: ?? This study has no prior mammograms for comparison. ? OVERALL ASSESSMENT: ?? BI-RADS 1 - Negative ? RECOMMENDATION: ?? 1 year F/U ? Addendum Dictated By: ?Rosalva Tang MD ? Addendum Signed By: ? <Electronically signed by Rosalva Tang MD in OV> ? 07/24/23 0848 ?? Addendum Cosigned By: ? DD/DT: 11/2210/10/744 ? TD/TT: / ? EXAMINATION: ?? MM [...] in OV> ? 12/11/22 0839 ? DD/ 1 ? TD/TT: ? Core Worker: ? Procedure Note Donotuseinterpreter, Image - 12/11/2022 [facility] [address] [place], [place] [address] Mammography Report Signed with Addenda Patient: Alexx Odell#: [id number] 666 : 1980Acct:[id number] Age/Sex: 42 / FADM Date: 11/22/22 Loc: CODYO Attending Dr: Serena Levine MD Ordering Physician: Serena Levine MDResults: Date of Service: 11/22/22Follow Up: Procedure(s): MM tomosynthesis screening BI Accession Number(s): [id number] cc: Serena Levine MD ADDENDUM ADDENDUM: This study has no prior mammograms for comparison. OVERALL ASSESSMENT: BI-RADS 1 - Negative RECOMMENDATION: 1 year F/U Addendum Dictated By: Rosalva Tang MD Addendum Signed By: <Electronically signed by Rosalva Tang MD in OV> 12/11/22847 Addendum Cosigned By: DD/ /10/744 TD/TT: / [...] signed by Rosalva Tang MD in OV> 12/11/2239 DD/ 1 TD/TT: Core Worker: Serena Levine MD IMG BI PROCEDURES Edited Result - Final * Lipid Panel with Reflex to Direct LDL (07/13/2022 2:58 PM EST) Cholesterol, Total 171 <200 mg/dL [employer] [place] [facility] HDL Cholesterol 56 > OR = 50 mg/dL [employer] [place] [facility] Triglycerides 88 <150 mg/dL [employer] [place] [facility] LDL Cholesterol 97 mg/dL (calc) [employer] [place] [facility] Comment: Reference range: <100 Desirable range <100 mg/dL for primary prevention; ?? <70 mg/dL for patients with CHD or diabetic patients with > or = 2 CHD risk factors. LDL-C is now calculated using the Haja-Lilian calculation, which is a validated novel method providing better accuracy than the Friedewald equation in the estimation of LDL-C. Haja SS et al. GIULIANA. 2013;310(19): 8045-5713 (http://education.MySocialCloud.com.Netero/faq/IKT934) Chol/HDLC Ratio 3.1 <5.0 (calc) [employer] [place] [facility] Non-HDL Cholesterol 115 <130 mg/dL (calc) [employer] [place] [facility] Comment: For patients with diabetes plus 1 major ASCVD risk factor, treating to a non-HDL-C goal of <100 mg/dL (LDL-C of <70 mg/dL) is considered a therapeutic option. 07/13/2022 2:58 PM EST 07/13/2022 2:58 PM EST Narrative [facility] - 07/14/2022 4:08 PM EST FASTING:NO FASTING: NO Serena Levine MD LAB BLOOD ORDERABLES Final Resul t [facility] [address], [place] [address] [employer] [facility] [address] [place] [address], (N[address]) [place] [address] * HEPATITIS C AB W/REFL TO HCV [...] a test for HCV RNA (test code 25082) is suggested. ?? For additional information please refer to http://[employer].timeplazza/faq/NRV81n2 (This link is being provided for informational/ [...] ? For additional information please refer to http://[employer].timeplazza/faq/KNC368 (This link is being provided for informational/ educational purposes only.) ? The performance of this assay has not been clinically validated in patients less than 2 years old. ?? 03/15/2022 9:38 AM EDT Serena Levine MD LAB BLOOD ORDERABLES Final Resul t CONVERTED LEGACY LABS from Last 3 Months or Most Recently Relevant to Health Maintenance Insurance [employer] on file Care Teams Venetian Blind Installer Relationship Specialty Start Date End Date Serena Levine MD [address] [place] [address] PCP - General Family Medicine 05/21/18 Nader Womack, PharmD [address] [place], [place] [id number] Pharmacist Internal Medicine 06/26/22
== END 2024-10-14 12:27 | disposition home or self-care (01) ==
PROVIDERS: Visit Provider Nurse Practitioner Family
DX: R10.13 Epigastric pain (principal); G89.29 Other chronic pain; K44.9 Diaphragmatic hernia without obstruction or gangrene; K21.9 Gastro-esophageal reflux disease without esophagitis

== ENCOUNTER → 2024-10-14 10:33 | Outpatient (BNVA) | payer OTHER, SELFPAY | PROVIDERS: Visit Provider Nurse Practitioner Family ==

== ENCOUNTER 2024-10-24 10:43 | Outpatient (AMB) | payer OTHER, SELFPAY ==
--- NOTE | 2024-10-24 11:19 | MHC.OFFWIV ---
Intake Vital Signs 10/24/24 11:24 Height 4 ft 11 in Weight 134 lb BMI 27.1 BP 124/80 Blood Pressure Location Rt brachial Position Sitting Respiration 15 Pulse 88 Pulse Source Pulse Oximeter Temp 98.7 F Temp Source Oral Pulse Oximetry (%) 99 Oxygen Delivery Method Room Air Intake Visit Reasons: EP-stomach pain, diarrhea, vomiting Intake Note: Pt is here today c/o stomach pain, diarrhea and vomiting x1mo. Patient Tobacco Use Status: Former Tobacco user Allergies No Known Allergies [No Known Allergies*] Allergy (Unknown, Verified 10/24/24 11:19) N/A HPI HPI Comments History of Present Illness Details Patient is a 44yo F who presents with abdominal pain She has hx of Hpylori in the past, anemia, hiatal hernia. hx of renal cancer in past and had L nephrecromy in the past She presents with GI symptoms x 1 month She said she lost a few points purposfully States after that she felt some abdominal discomfort Went to ER on October 02 and told + kidney stone and hiatal hernia She said she has daily pain in stomach upon waking Lasts for approx 1 hour Notices associated nausea, vomiting (dry heaving) vomitign mucus She said as the hour subsides she has improvment of symptoms but food makes epigastric pain worse She is staying hydrated and can tolerated bread She said intermittent constipation and diarrhea No blood or melena Has tried antiacids with some relief She does not have a current primary care provider; has appointment in January for new appointment + chills without fever No current GI doctor [facility] Medical History (Updated 10/24/24 @ 11:51 by Bobbi Ace PA-C) Paraesophageal hernia with gastroesophageal reflux Abdominal pain, chronic, epigastric Personal history of renal cancer Hypertension Iron deficiency Surgical History (Updated 06/06/23 @ 08:58 by Lisette Lance MD) Hx of tonsillectomy History of appendectomy H/O tubal ligation History of nephrectomy, left Social History Household Members: Spouse and Children Housing: House Alcohol intake: never Patient Tobacco Use Status: Former Tobacco user Current occupational status: employed Current occupation: rt handed . secrectary Review of Systems Const Reports chills, Reports fatigue, Denies fever(s), Reports lethargy, Reports weakness and Reports weight loss Card Denies chest pain and Denies dyspnea Resp Denies cough and Denies dyspnea GI Reports abdominal pain, Reports melena (since this am x 1 episode), Denies hematochezia, Reports constipation, Reports diarrhea, Reports nausea and Reports vomiting Denies difficulty voiding Skin/Breast Denies rash Neuro Reports weakness Endo Reports fatigue Physical Exam Vital Signs: Last Vital Signs Temp 98.7 F 10/24/24 11:24 Pulse 88 10/24/24 11:24 Resp 15 10/24/24 11:24 BP 124/80 10/24/24 11:24 Pulse Ox 99 10/24/24 11:24 Oxygen Delivery Method Room Air 10/24/24 11:24 BMI result Body Mass Index 27.1 General: Non-toxic, NAD. Speaking full sentences. She is emotional and tearful throughout interview Skin: Warm dry throughout Eye: PERRL, EOMI HENT: Airway patent. Uvula midline. No pharyngeal erythema or edema. No FLOOR BROKER. Bilateral canals clear. TM non-erythematous, non-bulging. No TM perforation or hemotympanum noted. Respiratory: CTA bilaterally. No wheezes, rales or rhonchi Cardiac: RRR. No murmur Abdominal: BS present. TTP epigastric region without palpable masses. No rebound or guarding. No abdominal distention or pusatile mass. MSK: Full ROM extremities. Neurology: Alert. No aphasia or facial droop. Gait without abnormality Psych: Tearful mood and affect Assessment & Plan Assessment & Plan (1) Abdominal pain: Code(s): R10.9 - Unspecified abdominal pain Qualifiers: Abdominal location: epigastric Qualified Code(s): R10.13 - Epigastric pain Plan: Pt seen and evaluated New onset melena per pt this am She has diagnosed moderage to large paraesophageal hernia without PCP or general surgery follow up Ongoing issue worsening x 1 month Expect called to [place] [facility] Pt feels safe to drive herself down for further evaluation and management Pt gave verbal understanding of plan at discharge and had no additional questions (2) Paraesophageal hernia: Code(s): K44.9 - Diaphragmatic hernia without obstruction or gangrene Plan: pt aware. going to ER for eval (3) Black tarry stools: Code(s): K92.1 - Melena Plan: Pt pt. WIll be worked up in ER Coding Level of Care Code Est Pt Level 4 (75250) Diagnoses Epigastric pain R10.13 Abdominal location: epigastric Paraesophageal hernia K44.9 Black tarry stools K92.1
[2024-10-24 11:24] VITALS: BP 124/80; PULSE 88; RESP 15; TEMP 37.1; O2SAT 99; BMI 27.1
--- OUTSIDE RECORDS SUMMARY | 2024-10-24 11:32 | XMS_ITS | Clinical Summary ---
Author Organization [employer] Address [address] [facility] [address] [place] [address] Care Team Providers Care Harbor Master Name Role Phone Serena Levine MD Primary Care Provider [phone] Nader Womack PharmD Unavailable [phone] Allergies No known active allergies Medications Diclofenac [...] (10/13/2022 5:33 AM EDT): - referred to game design instructor, but pain improved with weight loss - continue wearing comfortable shoes - continue enjoying water aerobics Cardiac risk counseling 10/13/2022 Assessment & Plan (10/13/2022 5:39 AM EDT): -Lipid profile: 07/13/22 TC 171; TG 88; HDL 56; LDL 97 -ASCVD risk < 7.5% -optimize risk factor management (HTN and smoking) Iron deficiency anemia 10/12/2022 Assessment & Plan (10/13/2022 5:33 AM EDT): - Following with New Car Salesperson for iron deficiency anemia, last seen 08/02/22 [...] -Not improving with conservative management -Refer to game design instructor Primary hypertension 07/03/2022 Assessment & Plan (10/13/2022 [...] tunnel release on 11/04/[address] Card, [facility] orthopedist Assessment & Plan (10/13/2022 5:27 AM EDT): -EMG/NCT on 08/12/20 right CTS confirmed -s/p right carpal tunnel release on 11/04/[address] Card, [facility] orthopedist -scheduled for [...] Date Type Department Care Team Description 10/14/2024 Telephone [facility] [address] [place] [address] Serena Levine MD Insurance Not In Contract with [facility] 10/14/2024 Travel 10/07/2024 Telephone [facility] [address] [place] [address] Jo Campbell RN Appointment Request 10/06/2024 Travel [...] Vaccine ( - season) 2024 01/16/2022, 12/19/2021 Mammogram 11/22/2024 11/22/2022 Influenza Vaccine (Season Ended) 2025 03/31/2014 Lipid Panel 07/13/2027 07/13/2022, 02/19, 03/07/2021, Additional [...] EDT Narrative 12/11/2022 8:42 AM EDT ? [facility] [place] ? [address] ?[place] [address] ? Mammography Report ? Signed with Addenda ? Patient: Yolande Odell ?MR#: [id number] ?? [id number] ? : 1980 ?Acct:[id number] ? Age/Sex: 42 / F ?ADM Date: 07/05/23 ? Loc: HO.MAMMO ? Attending Dr: Serena Levine MD ? Ordering Physician: Serena Levine MD ?Results: ? Date of Service: 07/05/23 ?Follow Up: ? Procedure(s): MM tomosynthesis screening BI ?? Accession Number(s): [id number] ? cc: Serena Levine MD ?ADDENDUM ?? [...] 0839 ? DD/ 1 ? TD/TT: ? Director Of Volunteer Services: ? Procedure Note Vivi, Don - 12/11/2022 [facility] [address] [place] [address] Dr. [place]ij[place], [place] [address] Mammography Report Signed with Addenda Patient: Yolande OdellMR#: [id number] 666 : 1980Acct:[id number] Age/Sex: 42 / FADM Date: 11/22/22 Loc: ELÍAS Attending Dr: Serena Levine MD Ordering Physician: Serena Levine MDResults: Date of Service: 11/22/22Follow Up: Procedure(s): MM tomosynthesis screening BI Accession Number(s): [id number] cc: Serena Levine MD ADDENDUM ADDENDUM: This study has no prior mammograms for comparison. OVERALL ASSESSMENT: BI-RADS 1 - Negative RECOMMENDATION: 1 year F/U Addendum Dictated By: Rosalva Tang MD Addendum Signed By: <Electronically signed by Rosalva Tang MD in OV> 12/11/2248 Addendum Cosigned By: DD/ /10/744 TD/TT: / [...] Tang MD in OV> 12/11/22 0839 DD/ 0812 TD/TT: Director Of Volunteer Services: Serena Levine MD [facility] BI PROCEDURES Edited Result - Final * Lipid Panel with Reflex to Direct LDL (07/13/2022 2:58 PM EST) Cholesterol, Total 171 <200 mg/dL No [employer] HDL Cholesterol 56 > OR = 50 mg/dL No [employer] Triglycerides 88 <150 mg/dL No [employer] LDL Cholesterol 97 mg/dL (calc) No [employer] Comment: Reference range: <100 Desirable range <100 mg/dL for primary prevention; ?? <70 mg/dL for patients with CHD or diabetic patients with > or = 2 CHD risk factors. LDL-C is now calculated using the Haja-Lilian calculation, which is a validated novel method providing better accuracy than the Friedewald equation in the estimation of LDL-C. Haja SS et al. GIULIANA. 2013;310(19): 2815-0850 (http://education.[employer]/faq/MGL486) Chol/HDLC Ratio 3.1 <5.0 (calc) No [employer] Non-HDL Cholesterol 115 <130 mg/dL (calc) No [employer] Comment: For patients with diabetes plus 1 major ASCVD risk factor, treating to a non-HDL-C goal of <100 mg/dL (LDL-C of <70 mg/dL) is considered a therapeutic option. 07/13/2022 2:58 PM EST 07/13/2022 2:58 PM EST Narrative [facility] - 07/14/2022 4:08 PM EST FASTING:NO FASTING: NO Serena Levine MD LAB BLOOD ORDERABLES Final Resul t [facility] [address], [place] [address] No [employer] [address] [facility], ([address]) [place] [address] * HEPATITIS C AB W/REFL TO HCV [...] a test for HCV RNA (test code 13483) is suggested. ?? For additional information please refer to http://[employer]/faq/JIU87f4 (This link is being provided for informational/ educational purposes only.) ?? 03/15/2022 9:38 AM EDT us Serena Levine MD HISTORICAL/NON ORDERABLE LABS Fi [...] ? For additional information please refer to http://[employer]/faq/NBU229 (This link is being provided for informational/ educational purposes only.) ? The performance of this assay has not been clinically validated in patients less than 2 years old. ?? 03/15/2022 9:38 AM EDT us Serena Levine MD LAB BLOOD ORDERABLES Final Resul t CONVERTED LEGACY LABS from Last 3 Months or Most Recently Relevant to Health Maintenance Care Teams Harbor Master Relationship Specialty Start Date End Date Serena Levine MD [address] [place] [address] PCP - General Family Medicine 05/21/18 Nader Womack, PharmD [address] [place] [address] Pharmacist Internal Medicine 06/26/22
== END 2024-10-24 11:59 | disposition home or self-care (01) ==
PROVIDERS: Visit Provider Physician Assistant
DX: R10.13 Epigastric pain (principal); K44.9 Diaphragmatic hernia without obstruction or gangrene; K92.1 Melena

== ENCOUNTER → 2024-10-24 10:43 | Outpatient (BNVA) | payer OTHER, SELFPAY | PROVIDERS: Visit Provider Physician Assistant ==

== ENCOUNTER 2024-10-24 12:17 | Emergency (ER) | payer OTHER, SELFPAY ==
[2024-10-24 12:36] VITALS: BP 162/103; PULSE 88; RESP 18; TEMP 36.6; O2SAT 99; BMI 26.6
--- NOTE | 2024-10-24 12:37 | ED_ITS ---
HPI - General Adult General Chief complaint: Abdominal Pain Stated complaint: Stomach Issues Sent by Urgent Care Time Seen by Provider: 10/24/24 21:15 Source: patient Mode of arrival: ambulatory Limitations: no limitations History of Present Illness ED Provider: HPI narrative: Patient with history of chronic gastritis for several months on famotidine and omeprazole comes here for similar pain was seen here in 10/12 CT scan of the abdomen was negative except for the right ureteric stone no hematuria no dysuria noticed some black stool for last 1 month but guaiac test was negative before and hemoglobin stable patient has not seen a mobile equipment servicer Related Data Previous Rx's ?Medication ?Instructions ?Recorded famotidine 20 mg tablet 20 mg PO BEDTIME #30 tabs 10/14/24 omeprazole 20 mg capsule,delayed 20 mg PO BID 30 days #60 caps 10/14/24 release oxycodone 5 mg tablet 5 mg PO Q8-10H PRN pain #12 tabs 10/24/24 sucralfate 1 gram tablet 1 g PO TID #90 tabs 10/24/24 Allergies Allergy/AdvReac Type Severity Reaction Status Date / Time No Known Allergies Allergy Unknown N/A Verified 10/24/24 12:40 [No Known Allergies*] Review of Systems 2 Review of Systems: Yes all other systems are reviewed and are negative PMFSH Past Medical History Medical History Paraesophageal hernia with gastroesophageal reflux Abdominal pain, chronic, epigastric Personal history of renal cancer Hypertension Iron deficiency Surgical History Hx of tonsillectomy History of appendectomy H/O tubal ligation History of nephrectomy, left Social History Social History Household Members: Spouse and Children Housing: House Alcohol intake: never Patient Tobacco Use Status: Former Tobacco user Advance Directives: No Advance Directives Information Provided: Yes Do you have a plan to hurt others: No Plan Current occupational status: employed Current occupation: rt handed . secrectary Physical Exam ED Vital Signs: Vital Signs - 24 hr 10/24/24 12:36 10/24/24 19:58 Temperature 97.9 F 98.2 F Pulse Rate 88 83 Respiratory Rate 18 16 Blood Pressure 162/103 H 168/97 H Pulse Oximetry 99 96 Oxygen Delivery Method Room Air Room Air BMI result Body Mass Index 26.6 Appearance: Alert. Oriented X3. No acute distress. Eyes: No pallor or icterus ENT: Pharynx normal. Oral Mucosa moist Neck: Normal inspection. Neck supple. CVS: Normal heart rate and rhythm. Pulses normal. Respiratory: No respiratory distress. Equal air entry bilateral, no wheezing/rales/rhonchi Abdomen: Soft and tenderness in epigastric area, Bowel sounds are present, no mass palpable, no CVA tenderness Skin: Skin warm and dry. Normal skin color. Normal skin turgor. Extremities: No lower extremity edema. No calf tenderness Neuro: Oriented X 3. No motor deficit. Course Course Course Narrative: 10/24/24 1237 MIGDALIA Graves This is a Rapid Medical Examination (RME) performed by Adrien Roy PA-C in triage. Full HPI, ROS, assessment and treatment plan per primary provider in the Main ED. Hx: 44 yo F here for eval of epigatric abd pain w/ rad to L flank, N/V/D x1 mo. reports black tarry stool this morning. not on AC. not on iron supplements. took pepto bismol last night. no urinary sx. PE/vitals: hypertensive - not compliant with meds. Plan: labs, UA, OBS Medications Administered Discontinued Medications Generic Name Dose Route Start Last Admin Trade Name Freq PRN Reason Stop Dose Admin Al Hydroxide/Mg Hydroxide 30 ml 10/24/24 21:33 10/24/24 21:56 Magnesium Hydrox/Alum Hydrox 30 Ml Oral.Susp PO 10/24/24 21:34 30 ml ONCE ONE Administration Famotidine 40 mg 10/24/24 21:33 10/24/24 21:56 Famotidine 20 Mg Tablet PO 10/24/24 21:34 40 mg ONCE ONE Administration Lidocaine HCl 15 ml 10/24/24 21:33 10/24/24 21:56 Lidocaine Hcl Viscous 2 % 15 Ml Solution MUCOUS MEM 10/24/24 21:34 15 ml ONCE ONE Administration Medical Decision Making Medical Decision Making MDM Narrative: Patient with chronic gastritis with increased pain in the epigastric area especially when she wakes up in the morning. Workup essentially negative today with stable labs patient advised to add sucralfate in the protocol avoid having greasy and spicy food late night and follow up with mobile equipment servicer patient has had a CT scan done on 10/02/2024 showed paraesophageal hernia Differential Diagnosis Differential Diagnoses: The differential diagnosis associated with the presentation includes Peptic ulcer disease/gastritis/GERD/pancreatitis Lab Data MDM Lab Attestation statement: I reviewed the patient's lab results. 10/24/24 13:14 10/24/24 13:14 Labs: Lab Results 10/24/24 10/24/24 Range/Units 13:14 20:40 WBC 12.2 H (4.8-10.8) X10*3/uL RBC 4.57 (4.20-5.50) X10*6/uL Hgb 12.7 (12.0-16.0) g/dl Hct 38.9 (37.0-47.0) % MCV 85.1 (80.0-98.0) fL MCH 27.8 (27.0-33.0) pg MCHC 32.6 (31.0-35.0) g/dl RDW 15.8 (11.0-16.0) % Plt Count 407 H (160-400) X10*3/uL MPV 10.2 (9.4-12.3) fL Immature Gran % (Auto) 0.3 (0.0-0.4) % Neut % (Auto) 73.8 H (45-73) % Lymph % (Auto) 18.7 L (20-40) % Ogle % (Auto) 6.7 (2-11) % Eos % (Auto) 0.3 (0-4) % Baso % (Auto) 0.2 (0-2) % Lymph # (Auto) 2.3 (1.2-4.9) X10*3/uL Ogle # (Auto) 0.8 (0.1-1.2) X10*3/uL Eos # (Auto) 0.0 (0.0-0.4) X10*3/uL Baso # (Auto) 0.0 (0.0-0.2) X10*3/uL Abs Immat Gran (auto) 0.04 H (0.00-0.03) X10*3/uL Absolute Neuts (auto) 9.0 H (2.0-8.3) x10*3/uL Absolute Nucleated RBC 0.000 (0.0-0.012) X10*3/uL Nucleated RBC % (auto) 0.0 (0.0-0.2) /100WBC Sodium 140 (135-145) mmol/L Potassium 4.3 (3.3-5.1) mmol/L Chloride 109 H (96-108) mmol/L Carbon Dioxide 26 (22-29) mmol/L Anion Gap 9 L (12-20) BUN 16 (9-16) mg/dL Creatinine 0.73 (0.5-1.4) mg/dL Estim Creat Clear Calc 77.3 Estimated GFR > 60 Random Glucose 87 (60-115) mg/dL Calcium 10.2 D (8.4-10.2) mg/dL Magnesium 2.0 (1.6-2.6) mg/dL Total Bilirubin 0.4 (0.0-1.0) mg/dL Direct Bilirubin 0.2 (0.0-0.5) mg/dL AST 18 (5-31) U/L ALT 12 (0-31) U/L Alkaline Phosphatase 65 (39-117) U/L Total Protein 7.8 (6.5-8.0) g/dL Albumin 4.6 (3.5-5.0) g/dL Lipase 32 (8-78) U/L Urine Color Yellow Urine Appearance Clear Urine pH 5.5 (5.0-9.0) Ur Specific Amberson >= 1.030 H (1.005-1.025) Urine Protein Trace (Neg-Trace) mg/dL Urine Glucose (UA) Negative (Negative) mg/dL Urine Ketones >=160 (Negative) mg/dL Urine Blood Negative (Negative) Urine Nitrite Negative (Negative) Ur Leukocyte Esterase Negative (Negative) Discharge Plan Discharge Clinical Impression: GERD (gastroesophageal reflux disease) Patient Disposition: Home, Self-Care Instructions: GERD (Gastroesophageal Reflux Disease) (ED) Additional Instructions: Continue famotidine and omeprazole Start taking sucralfate half an hour prior to meals as prescribed Follow up with mobile equipment servicer Avoid fried and spicy foods Prescriptions: New sucralfate 1 gram tablet 1 g PO TID Qty: 90 0RF oxycodone 5 mg tablet 5 mg PO Q8-10H PRN (Reason: pain) Qty: 12 0RF Rx Instructions: Partial Fill upon patient request. No Action omeprazole 20 mg capsule,delayed release(DR/EC) 20 mg PO BID 30 Days Qty: 60 1RF famotidine 20 mg tablet 20 mg PO BEDTIME Qty: 30 1RF Referrals: Valerie Rizvi MD [Physician] - 1 week Print Language: Luxembourgish
[2024-10-24 13:17] LABS: MANUAL DIFF FLAG NO
[2024-10-24 13:42] LABS: Alanine Aminotransferase 12 U/L (0-31); Albumin Level 4.6 g/dL (3.5-5.0); Alkaline Phosphatase 65 U/L (39-117); Anion Gap 9 (12-20); Aspartate Amino Transferase 18 U/L (5-31); Bilirubin Direct 0.2 mg/dL (0.0-0.5); Bilirubin Total 0.4 mg/dL (0.0-1.0); Blood Urea Nitrogen 16 mg/dL (9-16); Calcium 10.2 mg/dL (8.4-10.2); Carbon Dioxide 26 mmol/L (22-29); Chloride 109 mmol/L (96-108); Creatinine Clr Calc Pharmacy 77.3; Estimated Glomerular Filt Rate > 60; Glucose Random 87 mg/dL (60-115); Lipase 32 U/L (8-78); Potassium 4.3 mmol/L (3.3-5.1); Sodium 140 mmol/L (135-145); Total Protein 7.8 g/dL (6.5-8.0)
[2024-10-24 15:49] LABS: Basophils Percent Auto 0.2 % (0-2); Eosinophils Percent Auto 0.3 % (0-4); Hematocrit 38.9 % (37.0-47.0); Hemoglobin 12.7 g/dl (12.0-16.0); Imm Gran Abs Auto 0.04 X10*3/uL (0.00-0.03); Imm Gran Pct Auto 0.3 % (0.0-0.4); Lymphocytes Absolute Auto 2.3 X10*3/uL (1.2-4.9); Lymphocytes Percent Auto 18.7 % (20-40); Mean Corpuscular HGB Conc 32.6 g/dl (31.0-35.0); Mean Corpuscular Hemoglobin 27.8 pg (27.0-33.0); Mean Corpuscular Volume 85.1 fL (80.0-98.0); Mean Platelet Volume 10.2 fL (9.4-12.3); Monocytes Absolute Auto 0.8 X10*3/uL (0.1-1.2); Monocytes Percent Auto 6.7 % (2-11); Neutrophils Percent Auto 73.8 % (45-73); Platelet Count 407 X10*3/uL (160-400); Red Blood Count 4.57 X10*6/uL (4.20-5.50); Red Cell Distribution Width 15.8 % (11.0-16.0); White Blood Count 12.2 X10*3/uL (4.8-10.8)
[2024-10-24 19:58] VITALS: BP 168/97; PULSE 83; RESP 16; TEMP 36.8; O2SAT 96
[2024-10-24 20:46] LABS: Appearance Urine Clear; Color Urine Yellow; Glucose Urine UA Negative (Negative); Leukocyte Esterase Urine Negative (Negative); Nitrite Urine Negative (Negative); PH 5.5 (5.0-9.0); Specific Gravity - Urine >= 1.030 (1.005-1.025); Urine Blood Negative (Negative); Urine Ketones >=160 mg/dL (Negative); Urine Protein Trace mg/dL (Neg-Trace)
[2024-10-24] MEDS: Magnesium Hydrox/Alum Hydrox 30 ML ORAL.SUSP PO (21:56)
[2024-10-24] MEDS: Famotidine 20 MG TABLET 40 MG PO (21:56)
[2024-10-24] MEDS: Lidocaine HCl Viscous 2 % 15 ML SOLUTION MUCOUS MEM (21:56)
--- NOTE | 2024-10-24 22:06 | PC.NURSE ---
at time of d/c pt verbalized frustration about d/c plan d/t concern about known hiatal hernia. MD Lyons called to bedside to re-educate on plan to treat sx with meds as prescribed and f/u. pt verbalizes understanding and agreement with plan. nad at d/c.
[2024-10-24 22:08] VITALS: BP 155/97; PULSE 89; RESP 16; TEMP 36.8; O2SAT 99
== END 2024-10-24 22:08 | disposition home or self-care (01) ==
PROVIDERS: Physician Assistant Medical; Emergency Provider Internal Medicine
DX: K21.9 Gastro-esophageal reflux disease without esophagitis (principal); Z79.899 Other long term (current) drug therapy
CPT/HCPCS: 36415; 80048; 80076; 81003; 83690; 83735; 85025; 99283; 99284